=== PATIENT | female | born 1955 | race Caucasian/White ===

== ENCOUNTER → 2016-11-05 | Outpatient (CLI) | payer OTHER ==
[~2016-11-05] MED LIST: ASPCH81X PO; CHOL1000 PO; CLR10 PO; FLUO40CA8 PO; FRS/40 PO; HYDR25TA5 PO; MCRK20 PO; METO25TA3 PO; PRLSR20 PO; SALI0.6510 NAE; THY/120 PO; THY/30 PO; VNTHFA/IN INH; [UNRECOGNIZED DRUG - CODE] OPB
== END | disposition home or self-care (01) ==
LOC: C.RDSM 14:00
PROVIDERS: ATTEND Family Medicine
DX: M25.561 Pain in right knee (principal)

== ENCOUNTER 2017-06-02 02:50 | Observation (INO) | payer OTHER ==
[~2017-06-02] VITALS: Ht 165.1 cm; Wt 126.6 kg
[~2017-06-02 02:50] MED LIST changes: -CHOL1000 PO; -HYDR25TA5 PO; -MCRK20 PO; -SALI0.6510 NAE; -THY/120 PO; -VNTHFA/IN INH; -[UNRECOGNIZED DRUG - CODE] OPB
[2017-06-02 03:38] LABS: BASO % 0.5 %; BASO ABS # 0.03 K/uL (0-0.2); COMPLETE YES; EOS % 3.9 %; HEMATOCRIT 40.5 % (37-47); IG% 0.2 %; LYMPH % 24.4 %; LYMPH ABS # 1.49 K/uL (1.2-3.4); MEAN CELL VOLUME 83.9 fL (80-100); MEAN CORPUSCULAR HEMOGLOBIN 28.6 pg (25-34); MEAN CORPUSCULAR HGB CONC 34.1 g/dl (32-36); MONO % 10.5 %; NEUT % 60.5 %; PLATELET COUNT 208 K/uL (130-400); RED BLOOD COUNT 4.83 M/uL (4.2-5.4); WHITE BLOOD COUNT 6.11 K/uL (4.8-10.8)
[2017-06-02 03:50] LABS: POINT OF CARE TROPONIN I < 0.030 ng/ml (0-0.045)
[2017-06-02 04:09] LABS: ALT/SGPT 41 U/L (12-78); AST/SGOT 18 U/L (15-37); BLOOD UREA NITROGEN 17 mg/dl (7-18); BUN/CREATININE RATIO 17.5 (10-20); CALCIUM 8.4 mg/dl (8.5-10.1); CARBON DIOXIDE 28 mmol/L (21-32); CHLORIDE 105 mmol/L (98-107); CREATININE 0.95 mg/dl (0.60-1.20); GLUCOSE 98 mg/dl (70-99); POTASSIUM 3.2 mmol/L (3.5-5.1); SODIUM 140 mmol/L (136-145)
[2017-06-02] MEDS ORDERED: POTASSIUM CHLORIDE 10 MEQ TABCR PO STA (04:15)
[2017-06-02 04:20] LABS: ALKALINE PHOSPHATASE 91 U/L (45-117); THYROID STIMULATING HORMONE 0.914 uIu/ml (0.300-4.500)
[2017-06-02] MEDS ORDERED: ACETAMINOPHEN 325 MG TAB PO PRN (04:30)
[2017-06-02] MEDS ORDERED: HYDR25TA5 PO (04:37)
[2017-06-02] MEDS ORDERED: THY/120 PO (04:37)
[2017-06-02] MEDS ORDERED: [UNRECOGNIZED DRUG - CODE] OPB (04:39)
[2017-06-02] MEDS ORDERED: CHOL1000 PO (04:39)
[2017-06-02] MEDS ORDERED: SALI0.6510 NAE (04:40)
[2017-06-02] MEDS ORDERED: VNTHFA/IN INH (04:40)
[2017-06-02 04:41] LABS: MAGNESIUM 1.9 mg/dl (1.8-2.4)
--- NOTE | 2017-06-02 04:53 | History and Physical ---
History & Physical Date & Time of Service: Jun 02, 2017 at 04:16 Chief Complaint: Heartbeats Odd Primary Care Physician: Sofy Stewart D.OAnanda History of Present Illness Source: patient, clinic records, hospital records This is a 61 year old female with a PMH of obesity, HTN, hypothyroidism, CHARITY on CPAP, hx. of paroxysmal A. Fib, hx of paroxysmal SVT s/p ablation, GERD, asthma - presents with palpitations and shortness of breath. She states that the palpitations are intermittent and they began to worsen on Friday, 06/01, mid- day after adventist. She was in her usual state of health prior to this. She thought that the palpitations would go away, so she did not come to the ER right away - she has a history of paroxysmal SVT and A. Fib, but this did not seem similar to those. She states that at about 1AM on 06/02, she also had some shortness of breath, so she came to the ED. The SOB subsided, but her palpitations intermittently persisted. Denies fevers/chills, nausea/vomiting/ diarrhea. Family History FH: cancer Hypertension Social History Smoking Status: Never Smoker Marital Status: Immunizations History of Influenza Vaccine: Yes Influenza Vaccine Date: May 08, 2013 History of Tetanus Vaccine?: Yes History of Pneumococcal: No History of Hepatitis B Vaccine: No Multi-Drug Resistant Organisms History of MDRO: No Allergies Coded Allergies: Latex (Verified Allergy, Severe, ANAPHYLAXIS, 06/02/17) Cat Dander (Verified Allergy, Intermediate, wheezing, 06/02/17) Gemifloxacin (Verified Allergy, Unknown, UNKNOWN, 06/02/17) Iodinated Contrast Media (Verified Allergy, Unknown, UNKNOWN, 06/02/17) Moxifloxacin (Verified Allergy, Unknown, ., 06/02/17) Quinolones (Verified Allergy, Unknown, 06/02/17) Sulfa Drugs (Verified Allergy, Unknown, 06/02/17) Ibuprofen (Verified Adverse Reaction, Mild, GI SYMPTOMS, 06/02/17) AT [facility] [place] [facility] STATED PT HAS ALLERGY TO MOTRIN. Home Medications Scheduled Aspirin (Aspirin Chewable), 81 MG PO DAILY Cholecalciferol (Vitamin D3), 1 TAB PO DAILY Fluoxetine (Prozac), 40 MG PO DAILY Hydrochlorothiazide (Hydrochlorothiazide), 25 MG PO DAILY Metoprolol Succ (Toprol Xl) (Toprol-Xl), 25 MG PO QPM Olopatadine HCl (Olopatadine Hydrochloride), 1 DOSE OPB DAILY Omeprazole (Prilosec), 20 MG PO DAILY Thyroid ([place] Thyroid), 120 MG PO DAILY Scheduled PRN Albuterol Hfa (Ventolin Hfa), 2 PUFFS INH Q4 PRN for Wheezing Saline ([place] Nasal [place]), 2 SPRAYS BEKAH QID PRN for nasal congesiton or dryness Review of Systems Constitutional: No fever, No chills, No sweats, No weakness Respiratory: + shortness of breath, No cough, No sputum, No wheezing, No hemoptysis Cardiovascular: + palpitations, No chest pain, No edema Abdomen: No pain, No nausea, No vomiting, No diarrhea, No constipation, No GI bleeding Musculoskeletal: + muscle pain (L thigh), No joint pain Genitourinary - Female: + urinary frequency, No dysuria, No urinary urgency, No urinary incontinence Neurologic: No weakness, No numbness/tingling, No vertigo, No balance problems Psychiatric: No depression symptoms (controlled with medications), No anxiety, No insomnia Endocrine: No fatigue Hematologic / Lymphatic: No abnormal bleeding/bruising Integumentary: No rash Allergic / Immunologic: No environmental allergies, No seasonal allergies Physical Exam Vital Signs Date Time Temp Pulse Resp B/P (MAP) Pulse Ox O2 Delivery O2 Flow Rate FiO2 06/02/17 03:12 60 06/02/17 02:55 36.9 61 18 162/94 93 Room Air General Appearance: no apparent distress, + obese Head: normocephalic, atraumatic Eyes: normal inspection ENT: hearing grossly normal Neck: supple Respiratory/Chest: chest non-tender, lungs clear, normal breath sounds, no respiratory distress, no accessory muscle use Cardiovascular: regular rate, rhythm, no edema, no gallop, no JVD, no murmur Abdomen/GI: normal bowel sounds, non tender, soft Extremities/Musculoskelatal: normal inspection, no calf tenderness, normal capillary refill, no pedal edema, normal range of motion Neurologic/Psych: compensation and benefits analyst II-XII nml as tested, no motor/sensory deficits, alert, normal mood/affect, oriented x 3 Skin: normal color Lymphatic: no adenopathy Diagnostics Laboratory Results Results Past 24 Hours Test 06/02/17 03:15 06/02/17 03:30 06/02/17 04:15 Range/Units White Blood Count 6.11 4.8-10.8 K/uL Red Blood Count 4.83 4.2-5.4 M/uL Hemoglobin 13.8 12.0-16.0 g/dL Hematocrit 40.5 37-47 % Mean Corpuscular Volume 83.9 80-100 fL Mean Corpuscular Hemoglobin 28.6 25-34 pg Mean Corpuscular Hemoglobin Concent 34.1 32-36 g/dl Platelet Count 208 130-400 K/uL Mean Platelet Volume 10.0 7.4-10.4 fL Neutrophils (%) (Auto) 60.5 % Lymphocytes (%) (Auto) 24.4 % Monocytes (%) (Auto) 10.5 % Eosinophils (%) (Auto) 3.9 % Basophils (%) (Auto) 0.5 % Neutrophils # (Auto) 3.70 1.4-6.5 K/uL Lymphocytes # (Auto) 1.49 1.2-3.4 K/uL Monocytes # (Auto) 0.64 0.11-0.59 K/uL Eosinophils # (Auto) 0.24 0-0.5 K/uL Basophils # (Auto) 0.03 0-0.2 K/uL RDW Standard Deviation 39.4 36.4-46.3 fL RDW Coefficient of Variation 13.0 11.5-14.5 % Immature Granulocyte % (Auto) 0.2 % Immature Granulocyte # (Auto) 0.01 0.00-0.02 K/uL Sodium Level 140 136-145 mmol/L Potassium Level 3.2 3.5-5.1 mmol/L Chloride Level 105 98-107 mmol/L Carbon Dioxide Level 28 21-32 mmol/L Anion Gap 7.0 3-11 mmol/L Blood Urea Nitrogen 17 7-18 mg/dl Creatinine 0.95 0.60-1.20 mg/dl Est Creatinine Clear Calc Drug Dose 85.6 ml/min Estimated GFR () 76.0 Estimated GFR (Non- 65.6 BUN/Creatinine Ratio 17.5 10-20 Random Glucose 98 70-99 mg/dl Calcium Level 8.4 8.5-10.1 mg/dl Direct Bilirubin 0.1 0-0.2 mg/dl Aspartate Amino Transf (AST/SGOT) 18 15-37 U/L Alanine Aminotransferase (ALT/SGPT) 41 12-78 U/L Albumin 3.4 3.4-5.0 gm/dl Bedside D-Dimer > 450 0-450 ng/mlFEU Bedside Troponin I < 0.030 0-0.045 ng/ml Impression Assessment and Plan This is a 61 year old female with a PMH of obesity, HTN, hypothyroidism, CHARITY on CPAP, hx. of paroxysmal A. Fib, hx of paroxysmal SVT s/p ablation, GERD, asthma - presents with palpitations and shortness of breath Shortness of Breath/Palpitations Rule out PE, Rule out ACS patient presents with palpitations/shortness of breath d-dimer elevated allergic to IV contrast V/Q scan ordered by ER will check LE Doppler will monitor in tele for any SVT/A. Fib episodes trend cardiac enzymes, check an echo patient does have history of recurrent palpitations Hx. of Paroxysmal A. Fib Hx. of SVT s/p Ablation patient with recurrent palpitations as per cardiology notes will keep Toprol dose monitor in tele, check echo avoid caffeine Hypothyroidism TSH wnl continue current dose of Crestone HTN continue HCTZ and Toprol CHARITY nocturnal CPAP DVT ppx Lovenox FULL CODE
--- NOTE | 2017-06-02 04:56 | EMERGENCY ROOM VISIT NOTE ---
History First contact with patient: 03:04 Chief Complaint: CARDIAC ASSESSMENT Stated Complaint: HEARTBEATS ODD History of Present Illness The patient is a 61 year old female who presents to the Emergency Room with complaints of intermittent palpitations with shortness of breath for the past 12 hours. Patient has a history of SVT and A. fib. She no bloody show in several years ago by Dr. Bailey. No recent stress test or echo. No prior heart attack or stroke. No history of blood clots. Patient does not smoke. Patient does have a history of high blood pressure. No diabetes. Patient denies chest pain, fever, chills, abdominal pain, recent travel, tobacco use. Patient states her legs have been aching but she just restarted exercising this week by doing yoga and swimming this past week in order to lose weight. Patient denies supplements or weight loss products. No excessive caffeine. Review of Systems See HPI for pertinent positives & negatives. A total of 10 systems reviewed and were otherwise negative. Past Medical/Surgical History Medical Problems: (1) Failed hormonal therapy (2) Shortness of breath SVT, A. fib, hysterectomy, hypothyroidism, GERD, hypertension and cardiac ablation Family History FH: cancer Hypertension Social History Smoking Status: Never Smoker Alcohol Use: none Marital Status: Current/Historical Medications Scheduled Aspirin (Aspirin Chewable), 81 MG PO DAILY Cholecalciferol (Vitamin D3), 1 TAB PO DAILY Fluoxetine (Prozac), 40 MG PO DAILY Hydrochlorothiazide (Hydrochlorothiazide), 25 MG PO DAILY Metoprolol Succ (Toprol Xl) (Toprol-Xl), 25 MG PO QPM Olopatadine HCl (Olopatadine Hydrochloride), 1 DOSE OPB DAILY Omeprazole (Prilosec), 20 MG PO DAILY Thyroid ([place] Thyroid), 120 MG PO DAILY Scheduled PRN Albuterol Hfa (Ventolin Hfa), 2 PUFFS INH Q4 PRN for Wheezing Saline ([place] Nasal [place]), 2 SPRAYS BEKAH QID PRN for nasal congesiton or dryness Physical Exam Vital Signs Date Time Temp Pulse Resp B/P (MAP) Pulse Ox O2 Delivery O2 Flow Rate FiO2 06/02/17 04:31 60 18 140/75 98 Room Air 06/02/17 03:12 60 06/02/17 02:55 36.9 61 18 162/94 93 Room Air Physical Exam VITALS: Vitals are noted on the nurse's note and reviewed by myself. Vital signs hypertensive. GENERAL: Pleasant female, in no acute distress, nondiaphoretic, well-developed well-nourished. SKIN: The skin was without rashes, erythema, edema, or bruising. There is no tenting of the skin. Capillary reflex less than 2 seconds. HEAD: Normocephalic atraumatic. EARS: External auditory canals clear, tympanic membranes pearly perla without erythema or effusion bilaterally. EYES: Pupils equal round and reactive to light and accommodation. Conjunctivae without injection, sclerae without icterus. Extraocular movements intact. NOSE: Patent, turbinates without inflammation or discharge. MOUTH: Mucous membranes moist. Pharynx without erythema or exudate. Uvula midline. Airway patent. Tongue does not deviate. NECK: Supple without nuchal rigidity. No lymphadenopathy. No thyromegaly. Cervical spine is nontender. No JVD. HEART: Regular rate and rhythm without murmurs gallops or rubs. LUNGS: Clear to auscultation bilaterally without wheezes, rales or rhonchi. No dullness to percussion. No retractions or accessory muscle use. ABDOMEN: Positive bowel sounds x 4. Normal tympanic percussion. Soft, protuberant, obese, nontender, without masses or organomegaly. Donis sign negative. No guarding or rebound tenderness. MUSCULOSKELETAL: No muscle atrophy, erythema, noted. Minimal trace pitting edema to the lower extremities bilaterally. NEURO: Patient was alert and oriented to person place and time. Normal sensation to light and sharp touch. No focal neurological deficits. Medical Decision & Procedures Laboratory Results 06/02/17 03:15 Red Blood Count 4.83, Mean Corpuscular Volume 83.9, Mean Corpuscular Hemoglobin 28.6, Mean Corpuscular Hemoglobin Concent 34.1, Mean Platelet Volume 10.0, Neutrophils (%) (Auto) 60.5, Lymphocytes (%) (Auto) 24.4, Monocytes (%) (Auto) 10.5, Eosinophils (%) (Auto) 3.9, Basophils (%) (Auto) 0.5, Neutrophils # (Auto ) 3.70, Lymphocytes # (Auto) 1.49, Monocytes # (Auto) 0.64, Eosinophils # (Auto ) 0.24, Basophils # (Auto) 0.03 06/02/17 03:15 Test 06/02/17 03:15 06/02/17 03:30 White Blood Count 6.11 K/uL (4.8-10.8) Red Blood Count 4.83 M/uL (4.2-5.4) Hemoglobin 13.8 g/dL (12.0-16.0) Hematocrit 40.5 % (37-47) Mean Corpuscular Volume 83.9 fL (80-100) Mean Corpuscular Hemoglobin 28.6 pg (25-34) Mean Corpuscular Hemoglobin Concent 34.1 g/dl (32-36) Platelet Count 208 K/uL (130-400) Mean Platelet Volume 10.0 fL (7.4-10.4) Neutrophils (%) (Auto) 60.5 % Lymphocytes (%) (Auto) 24.4 % Monocytes (%) (Auto) 10.5 % Eosinophils (%) (Auto) 3.9 % Basophils (%) (Auto) 0.5 % Neutrophils # (Auto) 3.70 K/uL (1.4-6.5) Lymphocytes # (Auto) 1.49 K/uL (1.2-3.4) Monocytes # (Auto) 0.64 K/uL (0.11-0.59) Eosinophils # (Auto) 0.24 K/uL (0-0.5) Basophils # (Auto) 0.03 K/uL (0-0.2) RDW Standard Deviation 39.4 fL (36.4-46.3) RDW Coefficient of Variation 13.0 % (11.5-14.5) Immature Granulocyte % (Auto) 0.2 % Immature Granulocyte # (Auto) 0.01 K/uL (0.00-0.02) Anion Gap 7.0 mmol/L (3-11) Est Creatinine Clear Calc Drug Dose 85.6 ml/min Estimated GFR () 76.0 Estimated GFR (Non- 65.6 BUN/Creatinine Ratio 17.5 (10-20) Calcium Level 8.4 mg/dl (8.5-10.1) Magnesium Level 1.9 mg/dl (1.8-2.4) Total Bilirubin 0.4 mg/dl (0.2-1) Direct Bilirubin 0.1 mg/dl (0-0.2) Aspartate Amino Transf (AST/SGOT) 18 U/L (15-37) Alanine Aminotransferase (ALT/SGPT) 41 U/L (12-78) Alkaline Phosphatase 91 U/L (45-117) Troponin I < 0.015 ng/ml (0-0.045) Total Protein 6.7 gm/dl (6.4-8.2) Albumin 3.4 gm/dl (3.4-5.0) Thyroid Stimulating Hormone (TSH) 0.914 uIu/ml (0.300-4.500) Bedside D-Dimer > 450 ng/mlFEU (0-450) Bedside Troponin I < 0.030 ng/ml (0-0.045) ED Course Prior records/ancillary studies reviewed. Triage Nursing notes reviewed. The patient's history was concerning for palpitations. Differential diagnosis: Etiologies such as premature contractions, electrolyte abnormality, cardiac dysrhythmia, thyroid dysfunction, pulmonary embolism, infection, gastrointestinal, as well as others were entertained. Physical examination: Benign as above. ER treatment provided: Patient was observed On reassessment the patient felt better. Diagnostic interpretation by me: Cardiac monitoring revealed no dysrhythmia. The electrocardiogram was negative for pathologic change. Normal sinus, normal intervals, Q wave in the inferior leads unchanged from prior EKG, minimal ST depression in the lateral leads unchanged from prior EKG. Impression normal sinus rhythm with Q wave present in the inferior leads and minimal ST depression in the lateral leads unchanged from prior EKG from 2014 per my interpretation, The labs revealed negative troponin. Elevated d-dimer. Patient reports anaphylactic reaction to IV contrast. Patient will be evaluated by medicine for VQ scan in the morning. Imaging studies: Chest x-ray with cardiomegaly stable per chart review without overt consolidation, congestion or pneumothorax per my interpretation. US VENOUS BILATERAL LOWER EXTREMITIES: No evidence of deep vein thrombosis. Consultation: A consultation was placed with Dr Holden, hospitalist. The case was discussed and diagnostics were reviewed. The patient was evaluated in the ER for further treatment. This appears to be consistent with palpitations with shortness of breath and positive d-dimer with anaphylactic reaction to IV contrast. Because of this, patient will be evaluated by medicine for observation for VQ scan. Patient was neurovascularly and neurologically intact. She was well-appearing. She is advised to follow-up outpatient for Holter monitor with the family care for further workup for her palpitations upon discharge from the hospital. By the evaluation outlined above emergent etiologies such as electrolyte abnormality, cardiac dysrhythmia, thyroid dysfunction, infection, as well as others were deemed relatively unlikely. The pt informed about the findings as listed above. All questions were answered and pleased with the treatment. Case reviewed with my attending Medical Decision As above Medication Reconcilliation Current Medication List: was personally reviewed by me Blood Pressure Screening Patient's blood pressure: Elevated blood pressure Blood pressure disposition: Elevated BP felt to be situational Impression Primary Impression: Palpitations Additional Impressions: Dyspnea Elevated d-dimer Departure Information Dispostion Being Evaluated By Hospitalist Condition GOOD Referrals Sofy Stewart D.OAnanda (PCP) Patient Instructions My [facility] Additional Instructions Problem Qualifiers
[2017-06-02] MEDS ORDERED: IV FLUIDS COMPLETED PRN (05:00)
[2017-06-02 05:44] VITALS: BP 136/80; PULSE 89; TEMP 36.9; O2SAT 91; Ht 165.1 cm; Wt 126.6 kg
[2017-06-02] MEDS ORDERED: INFLUENZA ADMINISTRATION CHARGE ONE (06:30)
[2017-06-02] MEDS ORDERED: INFLUENZA VIRUS QUAD VACCINE 0.5 ML SYR IM. ONE (06:30)
--- NOTE | 2017-06-02 07:12 | DIAGNOSTIC IMAGING REPORT ---
BILATERAL LOWER EXTREMITY VENOUS DOPPLER HISTORY: leg aches, ? DVT COMPARISON STUDY: Venous Doppler 05/01/2015. FINDINGS: There is normal compressibility, flow, and augmentation within the bilateral lower extremity deep venous systems. IMPRESSION: No DVT within the right or left lower extremity. Electronically signed by: Ian Garnica M.D. 06/02/2017 7:10 AM Dictated Date/Time: 06/02/2017 7:10 AM
--- NOTE | 2017-06-02 07:21 | DIAGNOSTIC IMAGING REPORT ---
SINGLE VIEW CHEST CLINICAL HISTORY: Atypical chest pain. FINDINGS: An AP, portable, upright chest radiograph is compared to study dated 06/02/2017. The examination is degraded by portable technique, large body habitus, and patient rotation. The heart is mildly enlarged. The pulmonary vasculature is noncongested. There is mild bibasilar atelectasis. The lungs and pleural spaces are otherwise clear. No pneumothorax is seen. The bony thorax is grossly intact. IMPRESSION: Cardiomegaly with no acute cardiopulmonary abnormality. Electronically signed by: Emery Pires M.D. 06/02/2017 7:20 AM Dictated Date/Time: 06/02/2017 7:19 AM
[2017-06-02 07:32] VITALS: BP 109/70; PULSE 53; TEMP 36.8; O2SAT 95
[2017-06-02] MEDS ORDERED: PANTOprazole SOD 40 MG TAB PO SCH (09:00)
[2017-06-02] MEDS ORDERED: ASPIRIN 81 MG CHEW PO SCH ×2 (09:00→21:00)
[2017-06-02] MEDS ORDERED: NURSING DECISION MEDICATION ORDER SCH (09:00)
[2017-06-02] MEDS ORDERED: FLUOXETINE HCL 20 MG CAP PO SCH (09:00)
[2017-06-02] MEDS ORDERED: ENOXAPARIN 40 MG/0.4 ML SYR SC SCH (09:00)
[2017-06-02] MEDS ORDERED: HYDROCHLOROTHIAZIDE 25 MG TAB PO SCH (09:00)
[2017-06-02] MEDS ORDERED: ARMOUR THYROID 30 MG TAB PO SCH (09:00)
[2017-06-02] MEDS ORDERED: PERFLUTREN LIPID MICROSPHERE (DEFINITY) IV ONE (10:07)
--- NOTE | 2017-06-02 10:11 | Cardiology Consultation ---
Cardiology Consultation Date of Service Jun 02, 2017. (Faby Reilly PA-C) 06/02/17, 12:54 pm. (Wojciech Capellan,D.O.) Cardiology Consultation Cardiology Consultation: Date: 06/02/17 Attending [employer] Estate [employer] Licensee: Dr. Capellan Requesting Provider: Dr. Velasquez HPI: Patient is a 61 year old female, known to [facility] cardiology service, following with Dr. Bailey as an outpatient for history of palpitations vs cardiac awareness, PSVT s/p [place] [address] Jose, history of one episode PAF in setting of acute illness with decongestant use, hypertension CHARITY , Obesity. She had a negative stress echo in 2013 for inducible ischemia. Patient states she was in usual state of health yesterday AM. throughout the day , she began to notice intermittent palpitations, described as a fluttering sensation, that lasted several seconds and "took her breath away". Symptoms would resolve and occur every few minutes. This lasted throughout the day. No chest pain reported. She went to bed and fell asleep with symptoms awakening her from sleep several hours later. She noted worsening palpitations, occurring more frequently, and also noted dull headache. She was worried about recurrent afib and stroke and came to ER for evaluation. Work up in ER demonstrated hypokalemia, normal cardiac enzymes, EKG demonstrating NSR without overt changes from previous, elevated D.Dimer. Telemetry revealed NSR/Sinus bradycardia with intermittent PVC's without significant arrhythmias. She had venous duplex which was negative for DVT. VQ scan ordered and currently pending to r/o PE. Echo also pending. At time of consult, patient feeling better. Still notes intermittent palpitations, likely correlating to PVC's on telemetry, but she states they are not as frequent. No chest pain. No significant shortness of breath. She notes compliance with CPAP. She reports increased stressors at home due to ill , which she believes is contributing to her symptoms. She reports taking higher dose of metoprolol previously but was reduced to current Toprol 25 mg due to fatigue. ROS: See HPI for pertinent positives. All other 10 point review of systems is negative. Patient Active Problem List/PMH: Paroxysmal SVT (supraventricular tachycardia) Ablation of SVT Panic Disorder Mitral valve prolapse Esophageal reflux Asthma, mild persistent Edema Posttraumatic stress disorder Depressive disorder, not elsewhere classified Abnormal mammogram BONE & CARTILAGE DIS NOS - Osteopenia Other chronic allergic conjunctivitis Allergic rhinitis Family hx of melanoma Paroxysmal atrial fibrillation CHARITY (obstructive sleep apnea) Hx of actinic keratosis Acquired hypothyroidism HTN, goal below 140/90 Obesity PVC's Surgical History as noted in [facility] records in [facility]: Procedure Laterality Date Age Comment OR Chart TOTAL ABD HYSTERECTOMY W/WO REMOVAL OF TUBE(S) 08/11/12 57y via [facility] at [facility] - for DUB, anemia NASAL SURGERY PROCEDURE NEC for prior fx HAND/FINGER SURGERY NEC 2009 54 - 55y finger surgery, Dr. Garcia EGD, FLEXIBLE, DIAGNOSTIC DILATION AND CURETTAGE (DC) DEXA SCAN/BONE MINERAL AXIAL 2005 50 - 51y COLONOSCOPY, DIAGNOSTIC (RECTUM) 06/08/2012 56y COLONOSCOPY FLEXIBLE PROXIMAL DIAGNOSTIC performed by Roger Ahuja MD at [facility] BX BREAST PERCUT W/O IMAGE Right 07/11/2016 61y 07/11/2016right core biopsy - [facility] bcc dx BUNION CORRECTED WITH DOUBLE OSTEOTOMY ABLATE HEART DYSRHYTHM FOCUS 11/26/2010 55y CATHETER ABLATION-SVT performed by MICHELLE JOSE at [facility] [place] Social History Substance Use Topics Smoking status: Never Smoker Smokeless tobacco: Never Used Comment: no passive smoke Alcohol use Yes Comment: a few times a year Family History: Non contributory. No history of premature coronary artery disease or sudden cardiac . Review of patient's allergies indicates: Latex Other (Please comment) resp sx Avelox [Moxifloxacin Hcl In Nacl] Hives and Wheezing Cat Dander Wheezing, itching eyes Factive [Gemifloxacin Mesylate] Hives and Wheezing Iodinated Diagnostic Agents Wheezing IV contrast, unsure of oral Sulfa Antibiotics Other (Please comment) resp sx Current Outpatient Prescriptions OBJECTIVE/PHYSICAL EXAMINATION: Last 8 Hrs Date Time Temp Pulse Resp B/P (MAP) Pulse Ox O2 Delivery O2 Flow Rate FiO2 06/02/17 07:32 36.8 53 16 109/70 (83) 95 Room Air 06/02/17 05:44 36.9 89 18 136/80 91 Room Air 06/02/17 05:21 72 18 150/88 99 06/02/17 05:18 87 18 150/88 93 Room Air 06/02/17 04:31 60 18 140/75 98 Room Air 06/02/17 03:20 99 Room Air 06/02/17 03:12 60 06/02/17 02:55 36.9 61 18 162/94 93 Room Air General: NAD, AAO x3, obese. HEENT: Normocephalic. Atraumatic. Bilateral xanthelasma. Conjunctiva pink, no scleral icterus. No carotid bruits, the carotid upstrokes are brisk. No JVD. No HJR Heart: Regular normal S-1 and S-2 no S-3 or S-4 gallop. No murmurs or rubs appreciated. PMI is not displaced. No RV heave. Lungs: Clear bilateral without rales , rhonchi, or wheeze. Abdomen : Normal bowel sounds. Soft. Nontender. No masses or organomegaly. No abdominal bruits. Extremities: No clubbing or cyanosis. Plus one bilateral pretibial edema. Pulses: radial=2/4, Dorsalis pedis =2/4, posterior tibial=2/4. Neuro: No focal deficits. DATA: EKG on admission: Sinus bradycardia Inferior infarct noted previously in 2013. Mild ST/T wave depression/flattening in lateral leads - similar to prior tracings. No significant changes noted. Telemetry reviewed - NSR/Sinus bradycardia in the 50's with intermittent PVC' s. No sustained or tachyarrhythmias. Venous duplex - IMPRESSION: No DVT within the right or left lower extremity. Chest xray: IMPRESSION: Cardiomegaly with no acute cardiopulmonary abnormality. Labs this admission: Last 24 Hours Test 06/02/17 03:15 06/02/17 03:30 06/02/17 05:44 White Blood Count 6.11 K/uL Red Blood Count 4.83 M/uL Hemoglobin 13.8 g/dL Hematocrit 40.5 % Mean Corpuscular Volume 83.9 fL Mean Corpuscular Hemoglobin 28.6 pg Mean Corpuscular Hemoglobin Concent 34.1 g/dl Platelet Count 208 K/uL Mean Platelet Volume 10.0 fL Neutrophils (%) (Auto) 60.5 % Lymphocytes (%) (Auto) 24.4 % Monocytes (%) (Auto) 10.5 % Eosinophils (%) (Auto) 3.9 % Basophils (%) (Auto) 0.5 % Neutrophils # (Auto) 3.70 K/uL Lymphocytes # (Auto) 1.49 K/uL Monocytes # (Auto) 0.64 K/uL Eosinophils # (Auto) 0.24 K/uL Basophils # (Auto) 0.03 K/uL RDW Standard Deviation 39.4 fL RDW Coefficient of Variation 13.0 % Immature Granulocyte % (Auto) 0.2 % Immature Granulocyte # (Auto) 0.01 K/uL Sodium Level 140 mmol/L Potassium Level 3.2 mmol/L Chloride Level 105 mmol/L Carbon Dioxide Level 28 mmol/L Anion Gap 7.0 mmol/L Blood Urea Nitrogen 17 mg/dl Creatinine 0.95 mg/dl Est Creatinine Clear Calc Drug Dose 85.6 ml/min Estimated GFR () 76.0 Estimated GFR (Non- 65.6 BUN/Creatinine Ratio 17.5 Random Glucose 98 mg/dl Calcium Level 8.4 mg/dl Magnesium Level 1.9 mg/dl Total Bilirubin 0.4 mg/dl Direct Bilirubin 0.1 mg/dl Aspartate Amino Transf (AST/SGOT) 18 U/L Alanine Aminotransferase (ALT/SGPT) 41 U/L Alkaline Phosphatase 91 U/L Troponin I < 0.015 ng/ml Total Protein 6.7 gm/dl Albumin 3.4 gm/dl Thyroid Stimulating Hormone (TSH) 0.914 uIu/ml Bedside D-Dimer > 450 ng/mlFEU Bedside Troponin I < 0.030 ng/ml Prothrombin Time 11.0 SECONDS Prothromb Time International Ratio 1.0 Prior remote stress test Stress Echo 06/[address] Churchill's report: The stress test was terminated due to fatigue No symptoms were noted. The stress EKG response showed no evidence of ischemia. The exercise echocardiographic examination is normal without resting left ventricular wall motion abnormalities or inducible ischemia. ASSESSMENT: 1. Palpitations associated with SOB, likely due to sensed ventricular ectopy. No sustained arrhythmias on telemetry. 2. Hypokalemia, likely secondary to HCTZ use. 3. Elevated D. Dimer. Negative Venous duplex. VQ scan pending 4. H/o supraventricular dysrhythmias including PSVT s/p ablation and PAF in setting of acute sinusitis and use of decongestants. -No known recurrence 4. Obesity with chronic LE edema and venous insufficiency -controlled with HCTZ. 5. CHARITY - CPAP 6. Hypertension - controlled. PLAN: Supplement potassium. Recheck potassium levels this AM. Likely benefit from low dose potassium on discharge. No arrhythmias noted. Symptoms likely correlating with symptomatic PVC"s. Update 2D echo (already ordered) to evaluate LV function with frequent PVC's. Consider outpatient monitor and storage bin tender to r/o afib, and quantify frequency of PVC 's. We discussed titration of metoprolol dose to aid with symptoms, but patient declines due to generalized fatigue on higher dose. Case to be discussed with Dr. Capellan. (Faby Reilly PA-C) CARDIOLOGY ATTENDING ADDENDUM: The patient was seen and personally examined. Agree with Faby Reilly PA-C's findings and plans as documented in her note with additions as noted below. Patient describes palpitations a sensation of "missed heartbeats "that are different in character than her previous SVT episodes. So far on telemetry, the predominant rhythm has been sinus bradycardia in the 46 -50 bpm minute range with occasional unifocal PVCs and no sustained ventricular arrhythmia. No atrial fibrillation as been observed. No supraventricular tachycardia has been observed. Physical Exam: Last Vital Signs Documentation Date Time Temp Pulse Resp B/P (MAP) Pulse Ox O2 Delivery O2 Flow Rate FiO2 06/02/17 11:41 36.5 50 16 131/81 (98) 94 Room Air General: AAOx3, No acute distress Head exam is unremarkable. No scleral icterus of corneal arcus noted. Neck is without jugular venous distension, thyromegally, or carotid bruits. Carotid upstrokes are brisk bilaterally. no bruits Lungs are clear to auscultation and percussion. Cardiac exam reveals the PMI to be normally sized and situated. Rhythm is regular. First and second heart sounds normal. No murmurs, rubs or gallops. Abdominal exam reveals normal bowl sounds, no masses, no organomegaly and no aortic enlargement. Extremities are nonedematous and both femoral and pedal pulses are normal. Psychiatric: normal affect and mood. Neurologic: grossly normal, no focal deficits Data: Last Resulted 06/02/17 03:15 Red Blood Count 4.83, Mean Corpuscular Volume 83.9, Mean Corpuscular Hemoglobin 28.6, Mean Corpuscular Hemoglobin Concent 34.1, Mean Platelet Volume 10.0, Neutrophils (%) (Auto) 60.5, Lymphocytes (%) (Auto) 24.4, Monocytes (%) (Auto) 10.5, Eosinophils (%) (Auto) 3.9, Basophils (%) (Auto) 0.5, Neutrophils # (Auto ) 3.70, Lymphocytes # (Auto) 1.49, Monocytes # (Auto) 0.64, Eosinophils # (Auto ) 0.24, Basophils # (Auto) 0.03 Last Resulted 06/02/17 03:15 Past 24 Hours Test 06/02/17 03:15 06/02/17 05:44 06/02/17 10:20 06/02/17 12:20 Range/Units Troponin I < 0.015 0-0.045 ng/ml Prothromb Time International Ratio 1.0 0.9-1.1 Prothrombin Time 11.0 9.0-12.0 SECONDS Creatine Kinase MB Ratio 0-3.0 EKG performed 06/02/70 3:14 AM revealed sinus bradycardia at 59 bpm, findings of an age-indeterminate inferior infarction were noted, this EKG pattern is unchanged compared 2014. ASSESSMENT: 61-year-old female Palpitations, the patient's symptoms seem to correlate with sensed ventricular ectopy. She does have a history of this. She has had recurrence of her presenting symptoms while on telemetry, and sinus bradycardia with occasional PVCs is noted. She notes that her symptoms have not reproduced her previous SVT episodes. Hypopotassemia Hypertension, elevated blood pressure noted on presentation, improved most recent readings of 109/70, and 131/81 PLAN: The patient's echocardiogram had been reviewed independently. The left ventricular ejection fraction is normal, with findings of diastolic dysfunction , unchanged compared to her prior echocardiogram. She does have mild right ventricular chamber size enlargement with mild RV systolic dysfunction noted which was not appreciated on the prior echocardiogram performed several years ago. This may be explained by her long-standing history of obstructive sleep apnea for which she is on CPAP. There is no Doppler evidence of pulmonary hypertension. Lower extremity venous duplex was performed and is negative for DVT. Given her right ventricular chamber enlargement, I think it is reasonable to proceed with the ventilation/perfusion scan which as Ardie been ordered and is tentatively scheduled to be performed in about an hour in nuclear medicine. A CT angiogram to rule out pulmonary embolism was not performed due to her iodinated contrast media allergy. Her baseline heart rate is slow in the 50 beat per minute range as noted, and therefore I do not think we can go up on her metoprolol anymore. The ventilation/perfusion scan is low probability for pulmonary embolism I think the patient can be discharged later today with reassurance and with the addition of potassium supplementation. I think that the yield of an outpatient monitor at this point would be low, as it appears that her symptoms were reproduced, and are associated with ventricular ectopy noted on telemetry. Wojciech Capellan DO, FACC (Wojciech Capellan,MilaO.)
--- NOTE | 2017-06-02 11:36 | ECHOCARDIOGRAM REPORT ---
*NOTICE TO RECEIVING REPUBLICAN AGENCY This information is strictly Confidential and protected under [place] law. [place] law prohibits you from making any further disclosure of this information unless further disclosure is expressly permitted by the written consent of the person to whom it pertains or is authorized by law. A general authorization for the release of medical or other information is not sufficient for this purpose. Hospital accepts no responsibility if the information is made available to any other person, INCLUDING THE PATIENT. Interpretation Summary * Name: DICK ABRAMS Study Date: 06/02/2017 10:40 AM BP: 109/70 mmHg * Patient Location: [facility]\S\N277\S\1 HR: 53 * : 1955 (M/d/yyyy) Gender: Female Height: 65 in * Age: 61 yrs Ethnicity: CA Weight: 279 lb * Ordering Physician: Kobe Velasquez * Referring Physician: Self, Referred * Performed By: Renee Padron [facility] * * Reason For Study: PALPITATIONS * BSA: 2.3 m2 * -- Conclusions -- * There is mild concentric left ventricular hypertrophy. * No regional wall motion abnormalities noted. * The LV Ejection Fraction = 60-65%. * The right ventricle is mildly dilated. * The right ventricular systolic function is mildly reduced. * Diastolic dysfunction, Grade II (pseudonormalization pattern). * Doppler findings do not suggest pulmonary hypertension. * There is no significant valvular heart disease. * Compared to the prior study dated 06/02/14, mild RV chamber enlargement and mild RV systolic dysfunction is now noted. Procedure Details * A complete two-dimensional transthoracic echocardiogram was performed (2D, M-mode, Doppler and color flow Doppler). * The study was technically difficult. * There were technical limitations due to patient'sbody habitus * A contrast injection of Definity was performed to improve assessment of LV function. * Contrast was injected into an intravenous site in the left arm. * One vial of Definity ultrasound contrast was diluted in normal saline to a total volume of 10 ml. A total of '2' ml of solution was administered during imaging. * Lot # [id number] of Definity utilized for procedure. * Expiration date JUN 30. * The attending nurse who injected the contrast agent was MARIA A PEREZ RN. Left Ventricle * The left ventricle is normal in size. * There is mild concentric left ventricular hypertrophy. * Left ventricular systolic function is normal. * Ejection Fraction = 60-65%. * The left ventricular wall motion is normal. * No regional wall motion abnormalities noted. Right Ventricle * The right ventricle is mildly dilated. * The right ventricular systolic function is mildly reduced. Atria * The left atrial size is normal. * Right atrial size is normal. * There is no evidence of atrial septal defect, but resolution does not allow assessment for a patent foramen ovale. Mitral Valve * The mitral valve is normal. * There is no mitral valve stenosis. * Significant mitral regurgitation is absent. Tricuspid Valve * The tricuspid valve is normal. * There is no tricuspid stenosis. * Significant tricuspid regurgitation is absent. * Doppler findings do not suggest pulmonary hypertension. Aortic Valve * The aortic valve is trileaflet. * Aortic stenosis is absent. * There is no significant aortic regurgitation. Pulmonic Valve * The pulmonary valve is not well seen, but the Doppler examination is normal without significant regurgitation or stenosis. Great Vessels * The aortic root and proximal ascending aorta are normal sized. Pericardium/Pleural * There is no pericardial effusion. Great Vessels * Normal inferior vena cava diameter and respiratory variation suggests normal central venous pressure. Left Ventricular Diastolic Function * Diastolic dysfunction, Grade II (pseudonormalization pattern). MMode 2D Measurements and Calculations IVSd 1.5 cm IVSs 2.0 cm LVIDd 4.0 cm LVIDs 2.5 cm LVPWd 1.5 cm LVPWs 1.5 cm IVS/LVPW 1.0 FS 36.6 % EDV(Teich) 70.3 ml ESV(Teich) 23.2 ml EF(Teich) 67.0 % EDV(cubed) 64.4 ml ESV(cubed) 16.4 ml EF(cubed) 74.5 % % IVS thick 29.5 % % LVPW thick -2.04 % LV mass(C)d 241.7 grams LV mass(C)dI 106.1 grams/m\S\2 LV mass(C)s 169.6 grams LV mass(C)sI 74.4 grams/m\S\2 SV(Teich) 47.1 ml SI(Teich) 20.7 ml/m\S\2 SV(cubed) 48.0 ml SI(cubed) 21.1 ml/m\S\2 Ao root diam 3.2 cm Ao root area 7.9 cm\S\2 LA dimension 2.7 cm LA/Ao 0.85 LVOT diam 2.1 cm LVOT area 3.6 cm\S\2 LVAd ap4 32.3 cm\S\2 LVLd ap4 7.8 cm EDV(MOD-sp4) 110.7 ml EDV(sp4-el) 113.2 ml LVAs ap4 17.4 cm\S\2 LVLs ap4 6.5 cm ESV(MOD-sp4) 38.7 ml ESV(sp4-el) 39.3 ml EF(MOD-sp4) 65.0 % EF(sp4-el) 65.3 % LVAd ap2 28.1 cm\S\2 LVLd ap2 7.9 cm EDV(MOD-sp2) 81.1 ml EDV(sp2-el) 84.4 ml LVLd %diff 1.4 % EDV(MOD-bp) 96.2 ml SV(MOD-sp4) 72.0 ml SI(MOD-sp4) 31.6 ml/m\S\2 SV(sp4-el) 73.9 ml SI(sp4-el) 32.4 ml/m\S\2 Doppler Measurements and Calculations MV E max joshua 89.9 cm/sec MV A max joshua 64.1 cm/sec MV E/A 1.4 MV P1/2t max joshua 106.1 cm/sec MV P1/2t 126.0 msec MVA(P1/2t) 1.7 cm\S\2 MV dec slope 246.7 cm/sec\S\2 MV dec time 0.22 sec Ao V2 max 150.1 cm/sec Ao max PG 9.0 mmHg Ao max PG (full) 4.4 mmHg CARMELITA(V,A) 2.6 cm\S\2 CARMELITA(V,D) 2.6 cm\S\2 LV V1 max PG 4.6 mmHg LV V1 max 107.1 cm/sec PA V2 max 88.9 cm/sec PA max PG 3.2 mmHg TR max joshua 217.4 cm/sec
[2017-06-02 11:41] VITALS: BP 131/81; PULSE 50; TEMP 36.5; O2SAT 94
[2017-06-02 13:03] LABS: POTASSIUM 3.2 mmol/L (3.5-5.1)
--- NOTE | 2017-06-02 14:29 | DIAGNOSTIC IMAGING REPORT ---
NUCLEAR PULMONARY VENTILATION/PERFUSION SCAN CLINICAL HISTORY: Dyspnea. Palpitations. COMPARISON STUDY: Chest x-ray dated 06/02/2017. TECHNIQUE: Initially, ventilation images of both lungs are obtained following the inhalation of 32.8 mCi of aerosolized technetium 99m DTPA. Subsequently, perfusion images of both lungs were obtained following the IV administration of 5.8 mCi of technetium 99m MAA. Ventilation and perfusion images were acquired in the anterior, posterior, and oblique projections. FINDINGS: A chest x-ray performed 06/02/2017 shows cardiomegaly. No airspace consolidation or pleural effusion is identified. The ventilation of both lungs is normal and symmetric. Inhaled tracer is noted in the stomach. No perfusion defects are identified on the perfusion imaging. IMPRESSION: Findings are considered low probability for pulmonary embolus. Electronically signed by: Emery Pires M.D. 06/02/2017 2:27 PM Dictated Date/Time: 06/02/2017 2:26 PM
[2017-06-02] MEDS ORDERED: POTASSIUM CHLORIDE 20 MEQ TABCR PO ONE (14:45)
[2017-06-02 14:48] VITALS: BP 131/81; PULSE 50; TEMP 36.5; O2SAT 94
[2017-06-02] MEDS ORDERED: MCRK20 PO (14:49)
--- NOTE | 2017-06-02 14:55 | Discharge Instructions ---
Discharge Instructions Date of Service Jun 02, 2017. Admission Reason for Admission: Palpitations, Shortness Of Breath Discharge Discharge Diagnosis / Problem: PALPITATIONS Discharge Goals Goal(s): Diagnostic testing, Therapeutic intervention Activity Recommendations Activity Limitations: as noted below (NO HEAVY EXERTION UNTIL EVALUATED BY PRIMARY CARE PHYSICIAN) Lifting Limitations: until after follow-up appointment Exercise/Sports Limitations: gradually increase as tolerated (NO HEAVY EXERCISE UNTIL SEEN BY PRIMARY CARE PHYSICIAN/COMMERCIAL TIRE SERVICE TECHNICIAN) . Instructions / Follow-Up Instructions / Follow-Up TAKE POTASSIUM SUPPLEMENT DAILY. INCLUDE ORANGE, TOMATOES IN YOUR DIET. CALL PRIMARY CARE PHYSICIAN OR COMMERCIAL TIRE SERVICE TECHNICIAN, OR RETURN TO ER IMMEDIATELY IF WITH RECURRENCE OF SYMPTOMS. FOLLOW UP WITH PRIMARY CARE PROVIDER SRUTHI GIRALDO ON Friday06/06/17 AT 8: 05AM. FOLLOW UP WITH COMMERCIAL TIRE SERVICE TECHNICIAN IN 1-2 WEEKS. THE CLINIC WILL BE CALLING YOU SOON FOR AN APPOINTMENT SCHEDULE. Current Hospital Diet Patient's current hospital diet: AHA Diet (Heart Healthy) Discharge Diet Recommended Diet: AHA Diet (Heart Healthy) Procedures Procedures Performed: VQ SCAN, ULTRASOUND OF THE LEGS Pending Studies Studies pending at discharge: yes List of pending studies: REPEAT BLOOD WORK C/O PCP Medical Emergencies . Who to Call and When: Medical Emergencies: If at any time you feel your situation is an emergency, please call 911 immediately. . Non-Emergent Contact Non-Emergency issues call your: Primary Care Provider, Photographic Equipment Inspector Call Non-Emergent contact if: you have a fever, you have any medication questions . . "Provider Documentation" section prepared by Kobe Velasquez. . VTE Core Measure Inpt VTE Proph given/why not?: Enoxaparin (Lovenox)SQ
--- NOTE | 2017-06-02 14:56 | Progress Note ---
Medicine Progress Note Date & Time of Visit: Jun 02, 2017 at 09:01. Subjective patient seen resting in bedside chair comfortable not in distress denies recurrence of palpitations, with dyspnea no chest pain, dizziness, abdominal pain no right knee pain denies other symptoms Objective Last 8 Hrs Date Time Temp Pulse Resp B/P (MAP) Pulse Ox O2 Delivery O2 Flow Rate FiO2 06/02/17 07:32 36.8 53 16 109/70 (83) 95 Room Air 06/02/17 05:44 36.9 89 18 136/80 91 Room Air 06/02/17 05:21 72 18 150/88 99 06/02/17 05:18 87 18 150/88 93 Room Air 06/02/17 04:31 60 18 140/75 98 Room Air 06/02/17 03:20 99 Room Air 06/02/17 03:12 60 06/02/17 02:55 36.9 61 18 162/94 93 Room Air Physical Exam: General- oriented x 3, not in distress, speaks in sentences with no effort Head- atraumatic Eyes- PERRL, EOMI, anicteric ENT- oropharynx clear Neck- supple, no JVD, no adenopathy, no thyromegaly Lungs- clear to auscultation b/l Heart- regular rhythm; no murmur, no gallop, no rub appreciated Abdomen- normal bowel sounds, soft, nontender, no masses or hepatosplenomegaly Extremities- no pretibial edema, no calf tenderness; peripheral pulses intact Neuro- alert, oriented x 3; PERRL, EOMI; no facial palsy; no dysarthria; motor 5 /5 bilaterally; no cogwheel rigidity; patellar DTRs +2/2; toes downgoing bilaterally; finger to nose intact bilaterally Skin- warm & dry Laboratory Results: Last 24 Hours Test 06/02/17 03:15 06/02/17 03:30 06/02/17 05:44 White Blood Count 6.11 K/uL Red Blood Count 4.83 M/uL Hemoglobin 13.8 g/dL Hematocrit 40.5 % Mean Corpuscular Volume 83.9 fL Mean Corpuscular Hemoglobin 28.6 pg Mean Corpuscular Hemoglobin Concent 34.1 g/dl Platelet Count 208 K/uL Mean Platelet Volume 10.0 fL Neutrophils (%) (Auto) 60.5 % Lymphocytes (%) (Auto) 24.4 % Monocytes (%) (Auto) 10.5 % Eosinophils (%) (Auto) 3.9 % Basophils (%) (Auto) 0.5 % Neutrophils # (Auto) 3.70 K/uL Lymphocytes # (Auto) 1.49 K/uL Monocytes # (Auto) 0.64 K/uL Eosinophils # (Auto) 0.24 K/uL Basophils # (Auto) 0.03 K/uL RDW Standard Deviation 39.4 fL RDW Coefficient of Variation 13.0 % Immature Granulocyte % (Auto) 0.2 % Immature Granulocyte # (Auto) 0.01 K/uL Sodium Level 140 mmol/L Potassium Level 3.2 mmol/L Chloride Level 105 mmol/L Carbon Dioxide Level 28 mmol/L Anion Gap 7.0 mmol/L Blood Urea Nitrogen 17 mg/dl Creatinine 0.95 mg/dl Est Creatinine Clear Calc Drug Dose 85.6 ml/min Estimated GFR () 76.0 Estimated GFR (Non- 65.6 BUN/Creatinine Ratio 17.5 Random Glucose 98 mg/dl Calcium Level 8.4 mg/dl Magnesium Level 1.9 mg/dl Total Bilirubin 0.4 mg/dl Direct Bilirubin 0.1 mg/dl Aspartate Amino Transf (AST/SGOT) 18 U/L Alanine Aminotransferase (ALT/SGPT) 41 U/L Alkaline Phosphatase 91 U/L Troponin I < 0.015 ng/ml Total Protein 6.7 gm/dl Albumin 3.4 gm/dl Thyroid Stimulating Hormone (TSH) 0.914 uIu/ml Bedside D-Dimer > 450 ng/mlFEU Bedside Troponin I < 0.030 ng/ml Prothrombin Time 11.0 SECONDS Prothromb Time International Ratio 1.0 Assessment & Plan This is a 61 year old female with a PMH of obesity, HTN, hypothyroidism, CHARITY on CPAP, hx. of paroxysmal A. Fib, hx of paroxysmal SVT s/p ablation, GERD, asthma - presents with palpitations and shortness of breath Shortness of Breath/Palpitations Rule out PE, Rule out ACS patient presents with palpitations/shortness of breath d-dimer elevated allergic to IV contrast V/Q scan ordered by ER will check LE Doppler will monitor in tele for any SVT/A. Fib episodes trend cardiac enzymes, check an echo patient does have history of recurrent palpitations Hx. of Paroxysmal A. Fib Hx. of SVT s/p Ablation patient with recurrent palpitations as per cardiology notes will keep Toprol dose monitor in tele, check echo avoid caffeine Hypothyroidism TSH wnl continue current dose of [place] HTN continue HCTZ and Toprol CHARITY nocturnal CPAP DVT ppx Lovenox FULL CODE Current Inpatient Medications: Current Inpatient Medications Medications (Trade) Dose Ordered Sig/Zak Route Start Time Stop Time Status Last Admin Dose Admin Enoxaparin Sodium (Lovenox Inj) 40 mg Q24H SC 06/02/17 09:00 07/02/17 08:59 Acetaminophen (Tylenol Tab) 650 mg Q4H PRN PO 06/02/17 04:30 07/02/17 04:29 Aspirin (Aspirin Chew) 81 mg DAILY PO 06/02/17 09:00 07/02/17 08:59 Metoprolol Succinate (Toprol Xl Tab) 25 mg QPM PO 06/02/17 21:00 07/02/17 20:59 Fluoxetine HCl (Prozac Cap) 40 mg DAILY PO 06/02/17 09:00 07/02/17 08:59 06/02/17 08:05 40 MG Hydrochlorothiazide (Hydrochlorothiazide Tab) 25 mg DAILY PO 06/02/17 09:00 07/02/17 08:59 06/02/17 08:03 25 MG Pantoprazole Sodium (Protonix Tab) 40 mg QAM PO 06/02/17 09:00 07/02/17 08:59 06/02/17 08:03 40 MG Thyroid ([place] Thyroid Tab) 120 mg DAILY PO 06/02/17 09:00 07/02/17 08:59 06/02/17 08:04 120 MG Miscellaneous (Iv Fluids Completed) 1 ea PRN PRN N/A 06/02/17 05:00 06/02/18 04:59 Miscellaneous Information (Nursing Decision Medication Order) 1 ea UD N/A 06/02/17 09:00 07/02/17 08:59 UNV
[2017-06-02 15:27] VITALS: BP 131/83; PULSE 50; TEMP 36.7; O2SAT 91
[2017-06-02] MEDS ORDERED: METOPROLOL SUCC 25MG EXT REL TAB PO SCH (21:00)
[2017-06-03] MEDS ORDERED: POTASSIUM CHLORIDE 20 MEQ TABCR PO SCH (09:00)
--- NOTE | 2017-06-03 14:11 | Discharge Summary ---
Discharge Summary Date of Service Jun 03, 2017. Discharge Summary Admission Date: Jun 02, 2017 at 04:23 Discharge Date: Jun 02, 2017 Discharge Disposition: Home Principal Diagnosis: Palpitations Secondary Diagnoses/Problems: Please refer to hospital course below. Procedures: ECHO: * There is mild concentric left ventricular hypertrophy. * No regional wall motion abnormalities noted. * The LV Ejection Fraction = 60-65%. * The right ventricle is mildly dilated. * The right ventricular systolic function is mildly reduced. * Diastolic dysfunction, Grade II (pseudonormalization pattern). * Doppler findings do not suggest pulmonary hypertension. * There is no significant valvular heart disease. * Compared to the prior study dated 06/02/14, mild RV chamber enlargement and mild RV systolic dysfunction is now noted. BILATERAL LOWER EXTREMITY VENOUS DOPPLER HISTORY: leg aches, ? DVT COMPARISON STUDY: Venous Doppler 05/01/2015. FINDINGS: There is normal compressibility, flow, and augmentation within the bilateral lower extremity deep venous systems. IMPRESSION: No DVT within the right or left lower extremity. NUCLEAR PULMONARY VENTILATION/PERFUSION SCAN CLINICAL HISTORY: Dyspnea. Palpitations. COMPARISON STUDY: Chest x-ray dated 06/02/2017. TECHNIQUE: Initially, ventilation images of both lungs are obtained following the inhalation of 32.8 mCi of aerosolized technetium 99m DTPA. Subsequently, perfusion images of both lungs were obtained following the IV administration of 5.8 mCi of technetium 99m MAA. Ventilation and perfusion images were acquired in the anterior, posterior, and oblique projections. FINDINGS: A chest x-ray performed 06/02/2017 shows cardiomegaly. No airspace consolidation or pleural effusion is identified. The ventilation of both lungs is normal and symmetric. Inhaled tracer is noted in the stomach. No perfusion defects are identified on the perfusion imaging. IMPRESSION: Findings are considered low probability for pulmonary embolus. Consultations: Bulk Receiver Dr. Capellan Pending Studies/Follow-Up: Please refer to hospital course below. Medication Reconciliation New Medications: Potassium Chloride (Klor-Con M20) 20 Meq Tabcr 40 MEQ PO DAILY for 30 Days, #60 TABS 1 Refill Continued Medications: Albuterol Hfa (Ventolin Hfa) 200 Puffs/23304 Mcg Aers 2 PUFFS INH Q4 PRN for Wheezing, #1 INHALER Aspirin (Aspirin Chewable) 81 Mg Chew 81 MG PO DAILY Cholecalciferol (Vitamin D3) 1,000 Unit Tab 1 TAB PO DAILY for 90 Days, #90 TAB 3 Refills Fluoxetine (Prozac) 40 Mg Cap 40 MG PO DAILY, 0 Refills Hydrochlorothiazide (Hydrochlorothiazide) 25 Mg Tab 25 MG PO DAILY Metoprolol Succ (Toprol Xl) (Toprol-Xl) 25 Mg Tabcr 25 MG PO QPM, #30 TAB Olopatadine HCl (Olopatadine Hydrochloride) 0.2 % Yana 1 DOSE OPB DAILY Omeprazole (Prilosec) 20 Mg Capcr 20 MG PO DAILY, 0 Refills Saline ([place] Nasal [place]) 0.65 % Spr 2 SPRAYS BEKAH QID PRN for nasal congesiton or dryness Thyroid ([place] Thyroid) 120 Mg Tab 120 MG PO DAILY Admission Information HPI (per Admitting provider): This is a 61 year old female with a PMH of obesity, HTN, hypothyroidism, CHARITY on CPAP, hx. of paroxysmal A. Fib, hx of paroxysmal SVT s/p ablation, GERD, asthma - presents with palpitations and shortness of breath. She states that the palpitations are intermittent and they began to worsen on Friday, 06/01, mid- day after congregation. She was in her usual state of health prior to this. She thought that the palpitations would go away, so she did not come to the ER right away - she has a history of paroxysmal SVT and A. Fib, but this did not seem similar to those. She states that at about 1AM on 06/02, she also had some shortness of breath, so she came to the ED. The SOB subsided, but her palpitations intermittently persisted. Denies fevers/chills, nausea/vomiting/ diarrhea. Physical Exam (per Admitting): General Appearance: no apparent distress, + obese Head: normocephalic, atraumatic Eyes: normal inspection ENT: hearing grossly normal Neck: supple Respiratory/Chest: chest non-tender, lungs clear, normal breath sounds, no respiratory distress, no accessory muscle use Cardiovascular: regular rate, rhythm, no edema, no gallop, no JVD, no murmur Abdomen/GI: normal bowel sounds, non tender, soft Extremities/Musculoskelatal: normal inspection, no calf tenderness, normal capillary refill, no pedal edema, normal range of motion Neurologic/Psych: loom overhauler II-XII nml as tested, no motor/sensory deficits, alert , normal mood/affect, oriented x 3 Skin: normal color Lymphatic: no adenopathy Hospital Course This is a 61 year old female with a PMH of obesity, HTN, hypothyroidism, CHARITY on CPAP, hx. of paroxysmal A. Fib, hx of paroxysmal SVT s/p ablation, GERD, asthma - presents with palpitations and shortness of breath Shortness of Breath and Palpitations - History of SVT s/p Ablation, Paroxysmal Atrial Fibrillation - Pulmonary Embolism Ruled Out Acute Coronary Syndrome Ruled Out - VQ scan and Leg Doppler US negative - evaluated by Bulk Receiver Dr. Capellan Echo: as noted above Telemetry: (+) PVC's - symptoms possibly from PVC's continue usual Metoprolol K supplemented as K 3.2 monitor potassium level - follow up with Bulk Receiver in 2-3 weeks Hypothyroidism TSH wnl continue current dose of [place] HTN continue HCTZ and Toprol CHARITY nocturnal CPAP Disposition d/c home ff up with PCP in 1 week ff up with Bulk Receiver in 1-2 weeks Total time spent on discharge = This includes examination of the patient, discharge planning, medication reconciliation, and communication with other providers. Discharge Instructions Discharge Instructions Date of Service Jun 02, 2017. Admission Reason for Admission: Palpitations, Shortness Of Breath Discharge Discharge Diagnosis / Problem: PALPITATIONS Discharge Goals Goal(s): Diagnostic testing, Therapeutic intervention Activity Recommendations Activity Limitations: as noted below (NO HEAVY EXERTION UNTIL EVALUATED BY PRIMARY CARE PHYSICIAN) Lifting Limitations: until after follow-up appointment Exercise/Sports Limitations: gradually increase as tolerated (NO HEAVY EXERCISE UNTIL SEEN BY PRIMARY CARE PHYSICIAN/SENIOR FINANCIAL CONSULTANT) . Instructions / Follow-Up Instructions / Follow-Up TAKE POTASSIUM SUPPLEMENT DAILY. INCLUDE ORANGE, TOMATOES IN YOUR DIET. CALL PRIMARY CARE PHYSICIAN OR SENIOR FINANCIAL CONSULTANT, OR RETURN TO ER IMMEDIATELY IF WITH RECURRENCE OF SYMPTOMS. FOLLOW UP WITH PRIMARY CARE PROVIDER SRUTHI GIRALDO ON Friday06/06/17 AT 8: 05AM. FOLLOW UP WITH SENIOR FINANCIAL CONSULTANT IN 1-2 WEEKS. THE CLINIC WILL BE CALLING YOU SOON FOR AN APPOINTMENT SCHEDULE. Current Hospital Diet Patient's current hospital diet: AHA Diet (Heart Healthy) Discharge Diet Recommended Diet: AHA Diet (Heart Healthy) Procedures Procedures Performed: VQ SCAN, ULTRASOUND OF THE LEGS Pending Studies Studies pending at discharge: yes List of pending studies: REPEAT BLOOD WORK C/O PCP Medical Emergencies . Who to Call and When: Medical Emergencies: If at any time you feel your situation is an emergency, please call 911 immediately. . Non-Emergent Contact Non-Emergency issues call your: Primary Care Provider, Bulk Receiver Call Non-Emergent contact if: you have a fever, you have any medication questions . . "Provider Documentation" section prepared by Kobe Velasquez. . VTE Core Measure Inpt VTE Proph given/why not?: Enoxaparin (Lovenox)SQ
== END 2017-06-02 16:15 | disposition home or self-care (01) ==
LOC: C.EDB 02:51 → C.MED 04:23 → ENRESERV 04:57
PROVIDERS: ADMIT Family Medicine; ATTEND Internal Medicine
DX: R00.2 Palpitations (principal); R06.00 Dyspnea, unspecified; R79.1 Abnormal coagulation profile; I10 Essential (primary) hypertension; E03.9 Hypothyroidism, unspecified; G47.33 Obstructive sleep apnea (adult) (pediatric)

== ENCOUNTER → 2017-06-09 | Outpatient (CLI) | payer OTHER ==
[~2017-06-09] MED LIST changes: +CHOL1000 PO; -CLR10 PO; -FRS/40 PO; +HYDR25TA5 PO; +MCRK20 PO; +SALI0.6510 NAE; +THY/120 PO; -THY/30 PO; +VNTHFA/IN INH; +[UNRECOGNIZED DRUG - CODE] OPB
== END | disposition home or self-care (01) ==
LOC: C.MAMM 10:54
PROVIDERS: ATTEND Obstetrics & Gynecology
DX: M85.80 Other specified disorders of bone density and structure, unspecified site (principal)

== ENCOUNTER 2017-11-29 10:21 | Emergency (ER) | payer OTHER ==
[~2017-11-29] VITALS: Ht 165.1 cm; Wt 125.7 kg
[2017-11-29 10:28] VITALS: TEMP 36.6; Ht 165.1 cm; Wt 125.7 kg
[2017-11-29] MEDS ORDERED: ZLF/50 PO (11:16)
[2017-11-29] MEDS ORDERED: RANI150T3 PO (11:16)
[2017-11-29] MEDS ORDERED: MULT60CA PO (11:17)
--- NOTE | 2017-11-29 11:54 | DIAGNOSTIC IMAGING REPORT ---
RIGHT ELBOW 3 VIEWS HISTORY: elbow pain COMPARISON: None. FINDINGS: There is a right elbow effusion. No dislocation. Slightly distracted fracture at the coronoid process of the ulna. This demonstrates up to 3 mm of distraction. There is also a slightly impacted fracture at the radial head/neck. No radiopaque foreign bodies. IMPRESSION: 1. Slightly impacted radial head/neck fracture. 2. Slightly distracted fracture at the coronoid process of the ulna. 3. Right elbow effusion. Electronically signed by: Ian Garnica M.D. 11/29/2017 11:53 AM Dictated Date/Time: 11/29/2017 11:52 AM
--- NOTE | 2017-11-29 11:59 | DIAGNOSTIC IMAGING REPORT ---
NASAL BONES 3 VIEWS HISTORY: Fall. nasal pain COMPARISON: None. FINDINGS: Nondisplaced fracture at the tip of the bones. Mild nasal soft tissue swelling. The nasal septum is intact. No radiopaque foreign bodies. IMPRESSION: Nondisplaced fracture at the tip of the nasal bones. Electronically signed by: Ian Garnica M.D. 11/29/2017 11:57 AM Dictated Date/Time: 11/29/2017 11:56 AM
[2017-11-29] MEDS ORDERED: HYDR-5688 PO (12:12)
[2017-11-29 12:47] VITALS: BP 134/84; PULSE 63; O2SAT 96
--- NOTE | 2017-11-29 16:07 | EMERGENCY ROOM VISIT NOTE ---
ED Visit Note First contact with patient: 10:34 CHIEF COMPLAINT: Right elbow injury, facial pain, right knee pain HISTORY OF PRESENT ILLNESS: This 62-year-old white female patient fell this morning when walking into the [facility]. She states her shoe was wet from being in the rain and slipped on the floor. She fell onto her face and right side. She struck her right elbow, right knee, and face on the floor. There was immediate onset of pain. She denies any loss of consciousness. No neck pain, chest pain , shortness of breath. She has been ambulatory. She was able to go to the pool and swim, which eased the pain in her right knee. Elbow pain continues. She states her nose did bleed significantly but this has stopped. There is limitation of motion of the right arm because of the pain. The patient did not hear a cracking sound at the time of the injury. The pain is constant, moderately severe but much worse with flexion and extension at the elbow. Right -hand dominant. Her daughter accompanies her today. REVIEW OF SYSTEM: HEENT: No dizziness, visual problems, hearing loss, or tinnitus. There is no difficulty swallowing and no oral lesions are present. PULMONARY: No cough, shortness of breath, sputum production or hemoptysis. CARDIOVASCULAR: No chest pain, palpitations, shortness of breath or peripheral edema. GASTROINTESTINAL: No diarrhea, constipation, nausea, vomiting, or abdominal pain. GENITOURINARY: No dysuria, frequency, urgency or nocturia. NEUROLOGIC: No weakness, muscle tenderness, epilepsy or history of neurological problems. MUSCULOSKELETAL: No history of joint tenderness/swelling. Positive history of arthritis and arthralgias. SKIN: No rashes or lesions. ENDOCRINE: No history of diabetes or abnormal hair growth. PMH: Significant for osteoarthritis, obesity, asthma, GERD, hypothyroidism, hypertension and depression. Previous surgeries: None. Family history: Noncontributory. Allergies: Gemifloxacin, ibuprofen, latex, moxifloxacin, quinolones, sulfa Current medications: Reviewed and filed in patient's chart SOCIAL HISTORY: Patient lives at home. Employed as a director personal. No tobacco use, no EtOH use. PHYSICAL EXAM: Vital Signs: Reviewed nurse's notes. Afebrile. General: Well-developed, well-nourished, middle-aged white female, in no acute distress. Obvious discomfort. Sitting on the bed. Alert and oriented. Skin: Warm and dry with good turgor. No rashes. Positive ecchymosis and edema present over the anterior aspect of the right knee. No erythema. The patient is not diaphoretic. Small abrasions present on her nasal bridge and upper lip. H ENT: Normocephalic. Eyes PERRLA, EOMI. No conjunctiva or scleral injection. Nares with dried blood. No active drainage. Nasal bridge is swollen. Small abrasion present on her upper lip. Oropharynx without erythema or exudate. Oral mucosa moist. No lesions present. No chipped or fractured teeth. Musculoskeletal: Right shoulder evaluation reveals no pain with palpation over the clavicle, AC joint, glenohumeral joint, posterior rotator cuff musculature, deltoid, bicep, or tricep. Intact forward flexion, extension, and circumduction of the shoulder without pain. Right elbow is without edema or deformity on inspection. The range of motion is markedly limited in all directions because of the pain. There is tenderness over the head of the radius. Supination and pronation of the forearm is also painful. She has intact flexion extension of the wrist as well as the digits without discomfort. No pain with palpation over the midshaft forearm, wrist, hand, or digits. No pain with palpation over the olecranon. Cervical spine evaluation reveals no pain with palpation over the cervical spine or upper thoracic spine. Full range of motion of her neck. Right knee evaluation reveals significant ecchymosis anteriorly. No intra- articular effusion. She has full terminal extension. Flexion to greater than 90. Stable collateral ligaments. No defect in the patellar tendon or quadriceps tendon. She is able to perform a straight leg raise. Ambulatory with no significant limp. Neurologic: Cranial nerves II through XII are intact. Gross sensation is intact across the right arm by soft touch. Peripheral pulses are 2+. Radial, median, and ulnar nerve functions are clearly intact. Patient is able to extend her thumb and wrist as well as separate her fingers and cross her fingers. EMERGENCY DEPARTMENT COURSE: Radiographic imaging obtained today of the right elbow was reviewed by me and read by radiology. She has a displaced coronoid fracture as well as a nondisplaced radial head fracture. Joint is reduced. Small joint effusion is noted with positive sail sign. Radiographic imaging obtained today of the nasal bones was also positive for a nondisplaced nasal tip fracture. DIAGNOSIS: Right elbow displaced coronoid fracture. Right elbow nondisplaced radial head fracture. Nondisplaced nasal fracture. Right knee contusion DISCHARGE INSTRUCTIONS & TREATMENT: Patient was educated regarding today's findings. Conservative care measures were discussed. Ice and elevate the knee and nose frequently to reduce pain and swelling. She may use Tylenol for discomfort. She cannot use anti-inflammatories. Prescription was given for a small amount of [place] 5 mg to be used for more severe pain. Driving precautions were given. Patient was placed in a long-arm splint because of her elbow fractures. Cast care precautions were reviewed. Sling was provided for comfort. Follow-up with her orthopedist on Friday for reexamination. Call at that time. Return to the ED for any acute worsening of symptoms. Avoid blowing the nose. She will be unable to swim for several weeks. She may return when cleared by orthopedics. She was reassured that I do not suspect intracranial injury, cervical spine injury, right shoulder injury, or right knee derangement. Current/Historical Medications Scheduled Aspirin (Aspirin Chewable), 81 MG PO DAILY Cholecalciferol (Vitamin D3), 1 TAB PO DAILY Hydrochlorothiazide (Hydrochlorothiazide), 25 MG PO DAILY Metoprolol Succ (Toprol Xl) (Toprol-Xl), 25 MG PO QPM Multiple Vitamins W/ Minerals (Preservision Areds 2), 1 CAP PO BID Potassium Chloride (Klor-Con M20), 40 MEQ PO DAILY Sertraline HCl (Sertraline HCl), 50 MG PO DAILY Thyroid ([place] Thyroid), 120 MG PO DAILY Scheduled PRN Albuterol Hfa (Ventolin Hfa), 2 PUFFS INH Q4 PRN for Wheezing Hydrocodone/Acetaminophen 5MG/325MG ([place] 5MG/325MG), 1 TABLET PO Q6H PRN for Pain Ranitidine Hcl (Zantac), 150 MG PO DAILY PRN for Indigestion Saline ([place] Nasal [place]), 2 SPRAYS BEKAH QID PRN for nasal congesiton or dryness Allergies Coded Allergies: Latex (Verified Allergy, Severe, ANAPHYLAXIS, 11/29/17) Cat Dander (Verified Allergy, Intermediate, wheezing, 11/29/17) Gemifloxacin (Verified Allergy, Unknown, UNKNOWN, 11/29/17) Iodinated Contrast Media (Verified Allergy, Unknown, UNKNOWN, 11/29/17) Moxifloxacin (Verified Allergy, Unknown, ., 11/29/17) Quinolones (Verified Allergy, Unknown, 11/29/17) Sulfa Drugs (Verified Allergy, Unknown, 11/29/17) Ibuprofen (Verified Adverse Reaction, Mild, GI SYMPTOMS, 11/29/17) MD AT [facility] [place] RYAN STATED PT HAS ALLERGY TO MOTRIN. Vital Signs Date Time Temp Pulse Resp B/P (MAP) Pulse Ox O2 Delivery O2 Flow Rate FiO2 11/29/17 12:47 63 16 134/84 96 11/29/17 10:28 36.6 57 18 138/82 95 Room Air Departure Information Impression Primary Impression: Radial head fracture, closed Additional Impression: Fx coronoid proc ulna-closed Dispostion Home / Self-Care Condition GOOD Prescriptions Hydrocodone/Acetaminophen 5MG/325MG ([place] 5MG/325MG) Tab 1 TABLET PO Q6H Y for Pain, #12 TAB For Initial Treatment Prov: Harrison Hartman,P.A. 11/29/17 Referrals Maninder Garcia M.D. Forms CARE OF CASTS, HOME CARE DOCUMENTATION FORM, SPECIAL NARCOTICS INSTRUCTIONS, TYLENOL USE, IMPORTANT VISIT INFORMATION Patient Instructions My [facility] Additional Instructions Keep the splint on and dry at all times Ice and elevate frequently to reduce pain and swelling Tylenol every 6 hours as needed for mild discomfort Substitute [place] 1 tablet every 6 hours as needed for severe pain-no driving Call Dr. Garcia on Friday for follow-up this week Use the sling for support and comfort Problem Qualifiers
== END 2017-11-29 12:45 | disposition home or self-care (01) ==
LOC: C.EDB 10:22 → C.EDA 12:45
DX: S52.121A Displaced fracture of head of right radius, initial encounter for closed fracture (principal); S52.041A Displaced fracture of coronoid process of right ulna, initial encounter for closed fracture; S00.31XA Abrasion of nose, initial encounter; S00.511A Abrasion of lip, initial encounter; S80.01XA Contusion of right knee, initial encounter; W01.198A Fall on same level from slipping, tripping and stumbling with subsequent striking against other object, initial encounter; R51 Headache; J45.909 Unspecified asthma, uncomplicated; I10 Essential (primary) hypertension; F32.9 Major depressive disorder, single episode, unspecified; E03.9 Hypothyroidism, unspecified; Z88.8 Allergy status to other drugs, medicaments and biological substances; Z88.2 Allergy status to sulfonamides; Z88.1 Allergy status to other antibiotic agents; Z88.6 Allergy status to analgesic agent; Z91.040 Latex allergy status; Z79.82 Long term (current) use of aspirin; Z79.899 Other long term (current) drug therapy; Z91.048 Other nonmedicinal substance allergy status

== ENCOUNTER → 2017-12-01 | Outpatient (CLI) | payer OTHER ==
[~2017-12-01] MED LIST changes: +CEPH500C PO; -FLUO40CA8 PO; +HYDR-5688 PO; +MULT60CA PO; +POTA-639 PO; -PRLSR20 PO; +RANI150T3 PO; +ZLF/50 PO; -[UNRECOGNIZED DRUG - CODE] OPB
== END | disposition home or self-care (01) ==
LOC: C.RDSM 16:00
PROVIDERS: ATTEND Physical Medicine & Rehabilitation Sports Medicine
DX: S80.01XA Contusion of right knee, initial encounter (principal); X58.XXXA Exposure to other specified factors, initial encounter

== ENCOUNTER → 2017-12-02 | Outpatient (CLI) | payer OTHER ==
[~2017-12-02] MED LIST changes: -CEPH500C PO
--- NOTE | 2017-12-02 11:42 | DIAGNOSTIC IMAGING REPORT ---
CT OF THE RIGHT ELBOW WITHOUT CONTRAST CLINICAL HISTORY: Right elbow fracture. COMPARISON STUDY: Right elbow radiographs November 29, 2017. TECHNIQUE: Axial images of the right elbow were obtained without IV contrast. Sagittal and coronal reconstructions were viewed. FINDINGS: There has been no change in alignment of the minimally displaced impacted right radial head and neck fracture since exam of November 29, 2017. Similarly, alignment of the minimally distracted fracture of the coronoid process of the ulna is unchanged. Note is made of several linear ossific densities which measure up to 1.3 cm, located within the right elbow joint space anterior to the distal right humerus. These represent tiny intra-articular bone fragments. No additional intra-articular bone fragments are present. Radiocapitellar and ulnotrochlear alignment is anatomic. A right elbow joint effusion is present. IMPRESSION: 1. No change in alignment of the minimally distracted acute fractures of the right radial head/neck and coronoid process of the right ulna since radiographs of November 29, 2017. 2. Several small linear ossific densities measuring up to 1.3 cm within the right elbow joint space, located anterior to the distal right humerus which reflect tiny intra-articular bone fragments. 3. Right upper joint effusion. Electronically signed by: Rick Carolina M.D. 12/02/2017 11:40 AM Dictated Date/Time: 12/02/2017 11:27 AM
== END | disposition home or self-care (01) ==
LOC: C.CTS 10:53
PROVIDERS: ATTEND Physical Medicine & Rehabilitation Sports Medicine
DX: S52.041A Displaced fracture of coronoid process of right ulna, initial encounter for closed fracture (principal); S52.121A Displaced fracture of head of right radius, initial encounter for closed fracture; X58.XXXA Exposure to other specified factors, initial encounter; M85.9 Disorder of bone density and structure, unspecified

== ENCOUNTER 2017-12-04 18:34 | Emergency (ER) | payer OTHER ==
[~2017-12-04] VITALS: Ht 165.1 cm; Wt 125.6 kg
[~2017-12-04 18:34] MED LIST changes: -MCRK20 PO
[2017-12-04 18:49] VITALS: TEMP 36.9; Ht 165.1 cm; Wt 125.6 kg
--- NOTE | 2017-12-04 19:24 | EMERGENCY ROOM VISIT NOTE ---
ED Visit Note First contact with patient: 18:55 CHIEF COMPLAINT: Right leg pain, swelling, redness HISTORY OF PRESENTING ILLNESS: This is a 62-year-old female sent to the emergency department complaint of right leg pain, swelling, and redness has been getting progressively worse over the past few days. Patient states that she had a fall 5 days ago, sustaining a right arm fracture, nasal bone fracture , and large contusion to the right knee. X-rays of her right knee were negative at that time. She states that the pain has been constant and getting worse, throbbing, worse with hanging down and walking on the leg, better with elevation, currently rates as 4/10. She has not been taking any medication for the pain. She denies any open wounds on the skin. She does report a history of leg cellulitis in the past that was similar to this. She denies any headaches, neck pain, chest pain, shortness of breath, dizziness or syncope, abdominal pain, back pain, nausea or vomiting, bowel or bladder dysfunction, fevers or chills, or unusual rash. She denies any history of blood clots. REVIEW OF SYSTEMS: A complete 10 point review of systems was reviewed with the patient with pertinent positives and negatives as per history of present illness. All else were negative. PAST MEDICAL HISTORY: Hypertension, asthma, GERD, hypothyroidism, depression SOCIAL HISTORY: Lives at home. She denies tobacco use. ALLERGIES: Reviewed in chart, see below. PHYSICAL EXAM: CONSTITUTIONAL: Pleasant and cooperative. No acute distress. Well appearing and well nourished. HEENT: Normocephalic, atraumatic. Pupils equal, round and reactive to light, EOMI. TMs normal. Pharynx normal. NECK: Supple, full active range of motion without discomfort. RESPIRATORY: Clear to auscultation bilaterally with no wheezing, crackles, rhonchi or stridor. Equal expansion bilaterally. CARDIOVASCULAR: Regular rate and rhythm with no murmurs, rubs or gallops. Normal peripheral perfusion. No edema. GASTROINTESTINAL: Soft, nontender, nondistended. No palpable masses or HSM. Bowel sounds present in all quadrants. MUSCULOSKELETAL: Right arm is in a splint and sling. Fingers pink and warm with brisk cap refill and sensation intact. The right lower extremity is erythematous, swollen, and tender to palpation, hot to touch anteriorly. There is posterior calf tenderness as well. Moderate ecchymosis and swelling of the right knee. INTEGUMENTARY: No rash or other significant dermatologic conditions noted. NEUROLOGIC: Alert and oriented X 4 with normal affect. 5/5 strength in all 4 extremities, sensation intact to light touch in all 4 extremity's no focal neurologic deficits noted. Normal speech. Antalgic gait noted. ED COURSE AND MEDICAL DECISION MAKING: CC: Patient presenting with complaint of right leg pain, swelling, and redness DIFFERENTIAL DIAGNOSIS: Includes, but not limited to cellulitis, DVT, long bone fracture, contusion, ecchymosis, hematoma, among others. INTERPRETATION OF LABS: No leukocytosis, no anemia, normal platelets, no significant electrolyte abnormalities, normal renal function. IMAGING: R TIBIA/FIBULA 2 VIEWS ROUTINE CLINICAL HISTORY: recent fall, pain, redness, swelling, eval infection, fx COMPARISON STUDY: None. FINDINGS: No fracture or dislocation within the right tibia or fibula. Mild soft tissue swelling throughout the right lower leg. No bony destruction to suggest osteomyelitis. No radiopaque foreign bodies. Mild osteoarthritis within the right knee. IMPRESSION: No fracture, dislocation, or evidence for osteomyelitis within the right lower leg. Diffuse soft tissue swelling. MEDICATION RECONCILIATION: I attest that I have personally reviewed the patient 's current medication list. INITIAL VITAL SIGNS REVIEW: I reviewed the patient's initial vital signs and interpret them as follows: T: Afebrile; BP: Mildly hypertensive; HR: Within normal limits; RR: Within normal limit; Pulse Ox: Within normal limits on room air. Blood pressure screening: The patient was found to have an elevated blood pressure and was referred to their primary doctor for recheck and further treatment. SUMMARY: Patient was evaluated at bedside, history and physical exam performed. Patient is alert and oriented, no acute distress, resting calmly in the stretcher. There is moderate ecchymosis and swelling of the right knee with some dependent ecchymosis noted in the calf and ankle. There is swelling, tenderness, and erythema of the right calf, hot to touch. Posterior knee and calf tenderness to palpation as well. Orders were placed at bedside for basic labs, IV placement, tibia/fibula x-ray to rule out bony abnormality, venous duplex ultrasound to evaluate for DVT. Patient was offered something for her pain, she declined stating that her pain is tolerable at this time. Patient discussed with Dr. Denise, who agrees with my assessment and plan. Labs and imaging reviewed as above, unremarkable. Patient reassessed multiple times throughout ED stay, she remained stable and afebrile. I do feel the patient's clinical picture seems consistent with cellulitis, however given her recent trauma, a DVT is also a consideration. US in progress. Patient was signed out to Michael Sanchez PA-C, at change of shift, pending ultrasound results. If the ultrasound is negative for DVT, plan will be to treat the patient with Keflex on an outpatient basis for suspected cellulitis. Current/Historical Medications Scheduled Aspirin (Aspirin Chewable), 81 MG PO HS Cholecalciferol (Vitamin D3), 1 TAB PO QAM Hydrochlorothiazide (Hydrochlorothiazide), 25 MG PO QAM Metoprolol Succ (Toprol Xl) (Toprol-Xl), 25 MG PO QPM Multiple Vitamins W/ Minerals (Preservision Areds 2), 1 CAP PO BID Potassium Ext Rel (Klor-Con), 20 MEQ PO QAM Sertraline HCl (Sertraline HCl), 50 MG PO QAM Thyroid ([place] Thyroid), 120 MG PO QAM Scheduled PRN Albuterol Hfa (Ventolin Hfa), 2 PUFFS INH Q4 PRN for Wheezing Hydrocodone/Acetaminophen 5MG/325MG ([place] 5MG/325MG), 1 TABLET PO Q6H PRN for Pain Ranitidine Hcl (Zantac), 150 MG PO DAILY PRN for Indigestion Saline ([place] Nasal [place]), 2 SPRAYS BEKAH QID PRN for nasal congesiton or dryness Allergies Coded Allergies: Latex (Verified Allergy, Severe, ANAPHYLAXIS, 12/02/17) Cat Dander (Verified Allergy, Intermediate, wheezing, 12/02/17) Gemifloxacin (Verified Allergy, Unknown, HIVES, 12/02/17) Iodinated Contrast Media (Verified Allergy, Unknown, ANAPHYLAXIS, 12/02/17) Moxifloxacin (Verified Allergy, Unknown, HIVES, 12/02/17) Sulfa Drugs (Verified Allergy, Unknown, HIVES AND WHEEZING, 12/02/17) Ibuprofen (Verified Adverse Reaction, Mild, WHEEZING, 12/02/17) Vital Signs Date Time Temp Pulse Resp B/P (MAP) Pulse Ox O2 Delivery O2 Flow Rate FiO2 12/04/17 20:28 71 16 135/95 94 Room Air 12/04/17 18:49 36.9 83 18 135/88 97 Room Air Laboratory Results 12/04/17 19:20 Red Blood Count 4.89, Mean Corpuscular Volume 84.3, Mean Corpuscular Hemoglobin 28.6, Mean Corpuscular Hemoglobin Concent 34.0, Mean Platelet Volume 9.9, Neutrophils (%) (Auto) 61.2, Lymphocytes (%) (Auto) 24.4, Monocytes (%) (Auto) 10.1, Eosinophils (%) (Auto) 3.5, Basophils (%) (Auto) 0.6, Neutrophils # (Auto ) 3.80, Lymphocytes # (Auto) 1.52, Monocytes # (Auto) 0.63, Eosinophils # (Auto ) 0.22, Basophils # (Auto) 0.04 12/04/17 19:20 Test 12/04/17 19:20 White Blood Count 6.22 K/uL (4.8-10.8) Red Blood Count 4.89 M/uL (4.2-5.4) Hemoglobin 14.0 g/dL (12.0-16.0) Hematocrit 41.2 % (37-47) Mean Corpuscular Volume 84.3 fL (80-100) Mean Corpuscular Hemoglobin 28.6 pg (25-34) Mean Corpuscular Hemoglobin Concent 34.0 g/dl (32-36) Platelet Count 232 K/uL (130-400) Mean Platelet Volume 9.9 fL (7.4-10.4) Neutrophils (%) (Auto) 61.2 % Lymphocytes (%) (Auto) 24.4 % Monocytes (%) (Auto) 10.1 % Eosinophils (%) (Auto) 3.5 % Basophils (%) (Auto) 0.6 % Neutrophils # (Auto) 3.80 K/uL (1.4-6.5) Lymphocytes # (Auto) 1.52 K/uL (1.2-3.4) Monocytes # (Auto) 0.63 K/uL (0.11-0.59) Eosinophils # (Auto) 0.22 K/uL (0-0.5) Basophils # (Auto) 0.04 K/uL (0-0.2) RDW Standard Deviation 40.0 fL (36.4-46.3) RDW Coefficient of Variation 13.1 % (11.5-14.5) Immature Granulocyte % (Auto) 0.2 % Immature Granulocyte # (Auto) 0.01 K/uL (0.00-0.02) Anion Gap 6.0 mmol/L (3-11) Est Creatinine Clear Calc Drug Dose 109.2 ml/min Estimated GFR () 103.8 Estimated GFR (Non- 89.5 BUN/Creatinine Ratio 23.7 (10-20) Calcium Level 8.8 mg/dl (8.5-10.1) Departure Information Impression Primary Impression: Right leg pain Dispostion Still a Patient Condition GOOD Referrals Sofy Stewart D.O. (PCP) Patient Instructions ED Infec Skin Cellulitis, [facility] Additional Instructions You were seen in the Emergency Department for cellulitis. You have been prescribed Keflex to be taken 4 times a day for 10 days. This medication is an antibiotic to treat your skin infection. All antibiotics have the potential to cause diarrhea, you should eat yogurt every day or take a daily probiotic to help prevent this. Stop this medication and contact a medical provider if you were to develop any significant adverse side effects including: wheezing, shortness of breath, passing out, vomiting, or a diffuse rash. Always take antibiotics as directed and COMPLETE the ENTIRE course regardless of the improvement of your symptoms. Look for signs of worsening infection of the wound including: increased pain, swelling, foul discharge, streaking, or fevers/chills/feeling ill. If any of these are noticed you should return to the Emergency Department for further assessment and treatment. For pain control, you can use the following [id number] medicines (if >12 yo): - Extra strength (500mg/tab) Tylenol (acetaminophen) 1-2 tabs every 6-8 hours as needed. Do not exceed 6 tablets in a 24 hour period. Avoid taking more than 3 grams (3000 mg) of Tylenol per day. This includes any other sources of acetaminophen you may take on a regular basis. - Regular strength (200 mg/tab) Advil (ibuprofen) 3 tabs every 6-8 hours as needed. Do not exceed a dose of 2400 mg per day. Apply warm compresses to the area to help with pain and also to help improve the infection, and keep the leg elevated as much as possible to help reduce swelling. Follow up with your PCP in 2 days for recheck, or sooner for worsening symptoms. Return to the emergency department if your symptoms worsen despite treatment course outlined above. Work Instructions Return To Work: 2 days
[2017-12-04 19:34] LABS: BASO % 0.6 %; BASO ABS # 0.04 K/uL (0-0.2); EOS % 3.5 %; EOS ABS # 0.22 K/uL (0-0.5); HEMATOCRIT 41.2 % (37-47); IG# 0.01 K/uL (0.00-0.02); LYMPH % 24.4 %; LYMPH ABS # 1.52 K/uL (1.2-3.4); MEAN CELL VOLUME 84.3 fL (80-100); MEAN CORPUSCULAR HEMOGLOBIN 28.6 pg (25-34); MEAN PLATELET VOLUME 9.9 fL (7.4-10.4); MONO % 10.1 %; MONO ABS # 0.63 K/uL (0.11-0.59); NEUT % 61.2 %; PLATELET COUNT 232 K/uL (130-400); RED CELL DISTRIBUTION WIDTH CV 13.1 % (11.5-14.5); WHITE BLOOD COUNT 6.22 K/uL (4.8-10.8)
--- NOTE | 2017-12-04 19:42 | DIAGNOSTIC IMAGING REPORT ---
R TIBIA/FIBULA 2 VIEWS ROUTINE CLINICAL HISTORY: recent fall, pain, redness, swelling, eval infection, fx COMPARISON STUDY: None. FINDINGS: No fracture or dislocation within the right tibia or fibula. Mild soft tissue swelling throughout the right lower leg. No bony destruction to suggest osteomyelitis. No radiopaque foreign bodies. Mild osteoarthritis within the right knee. IMPRESSION: No fracture, dislocation, or evidence for osteomyelitis within the right lower leg. Diffuse soft tissue swelling. Electronically signed by: Ian Garnica M.D. 12/04/2017 7:41 PM Dictated Date/Time: 12/04/2017 7:39 PM
[2017-12-04 19:53] LABS: CALCIUM 8.8 mg/dl (8.5-10.1); CREATININE 0.73 mg/dl (0.60-1.20); POTASSIUM 3.4 mmol/L (3.5-5.1)
--- NOTE | 2017-12-04 21:38 | DIAGNOSTIC IMAGING REPORT ---
RIGHT LOWER EXTREMITY VENOUS DOPPLER HISTORY: recent trauma to leg, redness, swelling, pain, eval DVT COMPARISON STUDY: None. FINDINGS: There is normal compressibility, flow, and augmentation within the right lower extremity deep venous system. IMPRESSION: No DVT within the right lower extremity Electronically signed by: Ian Garnica M.D. 12/04/2017 9:37 PM Dictated Date/Time: 12/04/2017 9:37 PM
[2017-12-04] MEDS ORDERED: CEPHALEXIN 500MG HOME PACK 1 EA BTL PO STA (22:39)
[2017-12-04] MEDS ORDERED: CEPH500C PO ×2 (22:40→23:00)
--- NOTE | 2017-12-04 22:40 | EMERGENCY ROOM VISIT NOTE ---
History Chief Complaint: LEG PAIN,LEG INJURY Stated Complaint: FALL 11/29, R LOWER LEG RED/INFLAMED,HOT TO TOUCH History of Present Illness Pt. case signed out to me by BETHANIE Cabrera pending U/S or pts lower leg to evaluate for DVT. Please see her note for HPI, ROS, PE and clincal course until point of US. Review of Systems Pt. case signed out to me by BETHANIE Cabrera pending U/S or pts lower leg to evaluate for DVT. Please see her note for HPI, ROS, PE and clincal course until point of US. Past Medical/Surgical History Medical Problems: (1) Failed hormonal therapy (2) Shortness of breath Family History FH: cancer Hypertension Social History Smoking Status: Never Smoker Alcohol Use: none Marital Status: Current/Historical Medications Scheduled Aspirin (Aspirin Chewable), 81 MG PO HS Cephalexin Monohydrate (Keflex), 500 MG PO QID Cholecalciferol (Vitamin D3), 1 TAB PO QAM Hydrochlorothiazide (Hydrochlorothiazide), 25 MG PO QAM Metoprolol Succ (Toprol Xl) (Toprol-Xl), 25 MG PO QPM Multiple Vitamins W/ Minerals (Preservision Areds 2), 1 CAP PO BID Potassium Ext Rel (Klor-Con), 20 MEQ PO QAM Sertraline HCl (Sertraline HCl), 50 MG PO QAM Thyroid ([place] Thyroid), 120 MG PO QAM Scheduled PRN Albuterol Hfa (Ventolin Hfa), 2 PUFFS INH Q4 PRN for Wheezing Hydrocodone/Acetaminophen 5MG/325MG ([place] 5MG/325MG), 1 TABLET PO Q6H PRN for Pain Ranitidine Hcl (Zantac), 150 MG PO DAILY PRN for Indigestion Saline ([place] Nasal [place]), 2 SPRAYS BEKAH QID PRN for nasal congesiton or dryness Physical Exam Vital Signs Date Time Temp Pulse Resp B/P (MAP) Pulse Ox O2 Delivery O2 Flow Rate FiO2 12/04/17 23:14 76 16 129/70 98 12/04/17 20:28 71 16 135/95 94 Room Air 12/04/17 18:49 36.9 83 18 135/88 97 Room Air Physical Exam Pt. case signed out to me by BETHANIE Cabrera pending U/S or pts lower leg to evaluate for DVT. Please see her note for HPI, ROS, PE and clincal course until point of US. Medical Decision & Procedures ER Provider Diagnostic Interpretation: RIGHT LOWER EXTREMITY VENOUS DOPPLER HISTORY: recent trauma to leg, redness, swelling, pain, eval DVT COMPARISON STUDY: None. FINDINGS: There is normal compressibility, flow, and augmentation within the right lower extremity deep venous system. IMPRESSION: No DVT within the right lower extremity Electronically signed by: Ian Garnica M.D. 12/04/2017 9:37 PM Dictated Date/Time: 12/04/2017 9:37 PM Laboratory Results 12/04/17 19:20 Red Blood Count 4.89, Mean Corpuscular Volume 84.3, Mean Corpuscular Hemoglobin 28.6, Mean Corpuscular Hemoglobin Concent 34.0, Mean Platelet Volume 9.9, Neutrophils (%) (Auto) 61.2, Lymphocytes (%) (Auto) 24.4, Monocytes (%) (Auto) 10.1, Eosinophils (%) (Auto) 3.5, Basophils (%) (Auto) 0.6, Neutrophils # (Auto ) 3.80, Lymphocytes # (Auto) 1.52, Monocytes # (Auto) 0.63, Eosinophils # (Auto ) 0.22, Basophils # (Auto) 0.04 12/04/17 19:20 Test 12/04/17 19:20 White Blood Count 6.22 K/uL (4.8-10.8) Red Blood Count 4.89 M/uL (4.2-5.4) Hemoglobin 14.0 g/dL (12.0-16.0) Hematocrit 41.2 % (37-47) Mean Corpuscular Volume 84.3 fL (80-100) Mean Corpuscular Hemoglobin 28.6 pg (25-34) Mean Corpuscular Hemoglobin Concent 34.0 g/dl (32-36) Platelet Count 232 K/uL (130-400) Mean Platelet Volume 9.9 fL (7.4-10.4) Neutrophils (%) (Auto) 61.2 % Lymphocytes (%) (Auto) 24.4 % Monocytes (%) (Auto) 10.1 % Eosinophils (%) (Auto) 3.5 % Basophils (%) (Auto) 0.6 % Neutrophils # (Auto) 3.80 K/uL (1.4-6.5) Lymphocytes # (Auto) 1.52 K/uL (1.2-3.4) Monocytes # (Auto) 0.63 K/uL (0.11-0.59) Eosinophils # (Auto) 0.22 K/uL (0-0.5) Basophils # (Auto) 0.04 K/uL (0-0.2) RDW Standard Deviation 40.0 fL (36.4-46.3) RDW Coefficient of Variation 13.1 % (11.5-14.5) Immature Granulocyte % (Auto) 0.2 % Immature Granulocyte # (Auto) 0.01 K/uL (0.00-0.02) Anion Gap 6.0 mmol/L (3-11) Est Creatinine Clear Calc Drug Dose 109.2 ml/min Estimated GFR () 103.8 Estimated GFR (Non- 89.5 BUN/Creatinine Ratio 23.7 (10-20) Calcium Level 8.8 mg/dl (8.5-10.1) Medical Decision Case received in sign out pending U/S results. There is no DVT therefore clinical suspicion is high for cellulitis. She will be tx with keflex po. She was given first dose here with homepack secondary to her pharmacy being closed. Both written and e script provided as she will be traveling tomorrow and expresses concerns about filling script in [place]. She will fill it early tomorrow AM here in [place]. She is to fill only 1 script. She is to follow up in 2 days for recheck or seek medical attention here or [place] if worsening. The patient was educated upon management, had questions answered prior to discharge , and was discharged home in good condition. Impression Primary Impression: Right leg pain Departure Information Dispostion Home / Self-Care Condition GOOD Prescriptions Cephalexin Monohydrate (Keflex) 500 Mg Cap 500 MG PO QID for 9 Days, #36 CAP 1 tablet every 6 hours Prov: Michael Sanchez PA-C 12/04/17 Referrals Sofy Stewart D.O. (PCP) Forms HOME CARE DOCUMENTATION FORM, Work Instructions, IMPORTANT VISIT INFORMATION Patient Instructions My [facility], ED Infec Skin Cellulitis Additional Instructions You were seen in the Emergency Department for cellulitis. You have been prescribed Keflex to be taken 4 times a day for 10 days. This medication is an antibiotic to treat your skin infection. All antibiotics have the potential to cause diarrhea, you should eat yogurt every day or take a daily probiotic to help prevent this. Stop this medication and contact a medical provider if you were to develop any significant adverse side effects including: wheezing, shortness of breath, passing out, vomiting, or a diffuse rash. Always take antibiotics as directed and COMPLETE the ENTIRE course regardless of the improvement of your symptoms. Look for signs of worsening infection of the wound including: increased pain, swelling, foul discharge, streaking, or fevers/chills/feeling ill. If any of these are noticed you should return to the Emergency Department for further assessment and treatment. For pain control, you can use the following [id number] medicines (if >12 yo): - Extra strength (500mg/tab) Tylenol (acetaminophen) 1-2 tabs every 6-8 hours as needed. Do not exceed 6 tablets in a 24 hour period. Avoid taking more than 3 grams (3000 mg) of Tylenol per day. This includes any other sources of acetaminophen you may take on a regular basis. - Regular strength (200 mg/tab) Advil (ibuprofen) 3 tabs every 6-8 hours as needed. Do not exceed a dose of 2400 mg per day. Apply warm compresses to the area to help with pain and also to help improve the infection, and keep the leg elevated as much as possible to help reduce swelling. Follow up with your PCP in 2 days for recheck, or sooner for worsening symptoms. Return to the emergency department if your symptoms worsen despite treatment course outlined above. Work Instructions Return To Work: 2 days
[2017-12-04 23:14] VITALS: BP 129/70; PULSE 76; O2SAT 98
== END 2017-12-04 23:14 | disposition home or self-care (01) ==
LOC: C.EDB 18:35 → C.EDD 23:14
DX: S80.01XA Contusion of right knee, initial encounter (principal); S80.11XA Contusion of right lower leg, initial encounter; M79.89 Other specified soft tissue disorders; L53.9 Erythematous condition, unspecified; S90.01XA Contusion of right ankle, initial encounter; W19.XXXA Unspecified fall, initial encounter; R26.89 Other abnormalities of gait and mobility; R03.0 Elevated blood-pressure reading, without diagnosis of hypertension; I10 Essential (primary) hypertension; Z79.82 Long term (current) use of aspirin; F32.9 Major depressive disorder, single episode, unspecified; E03.9 Hypothyroidism, unspecified; Z91.040 Latex allergy status; Z88.1 Allergy status to other antibiotic agents; Z91.041 Radiographic dye allergy status; Z88.2 Allergy status to sulfonamides; Z88.6 Allergy status to analgesic agent

== ENCOUNTER → 2018-02-18 | Outpatient (CLI) | payer OTHER ==
[~2018-02-18] MED LIST changes: +CEPH500C PO
== END | disposition home or self-care (01) ==
LOC: C.RDSM 09:35
PROVIDERS: ATTEND Physical Medicine & Rehabilitation Sports Medicine
DX: S52.121A Displaced fracture of head of right radius, initial encounter for closed fracture (principal); S52.041A Displaced fracture of coronoid process of right ulna, initial encounter for closed fracture; X58.XXXA Exposure to other specified factors, initial encounter